=== PATIENT | female | born 1935 | race Caucasian/White ===

== ENCOUNTER 2016-12-16 15:26 | Inpatient (IN) | payer MEDICARE ==
[2016-12-16] VITALS (8 sets, daily range): BP systolic 146–210; BP diastolic 60–73
[~2016-12-16] VITALS: Ht 160 cm; Wt 122.7 kg
--- NOTE | ~2016-12-16 | PR ---
[place], [place] PROGRESS NOTE NAME: [facility]ENETTA GUILLAUME [facility] [id number] UNIT #: [id number] ROOM: 409 DOCTOR: DEIGO HASSAN MD BIRTHDATE: [birth year] DOS: 12/19/2016 SUBJECTIVE: The patient just had a stress Cardiolite done yesterday, seen by Dr. Thurston, no evidence of any ischemia. Ejection fraction is well preserved. Hemodynamically appears to be stable. OBJECTIVE: VITAL SIGNS: Blood pressure is 150/59. NECK: Supple. No JVD. LUNGS: Diminished breath sounds. HEART: Heart sounds are regular. NEUROLOGIC: Stable. LABORATORY DATA: Hemoglobin 12.2, hematocrit 36.3. Electrolytes are normal. REVIEW OF SYSTEMS: Six to eight systems reviewed and as per HPI. Ejection fraction is excellent. IMPRESSION: Hypertensive urgency, atypical chest pain, coronary artery disease, irritable bowel syndrome, chronic obstructive pulmonary disease. RECOMMENDATIONS: Continue the present management. Continue to monitor the INR. Blood pressure is much better. Her Coumadin dose has been adjusted. Potassium and magnesium has been supplemented. The patient is already on lisinopril and metoprolol and Bumex. Continue the present care. DIEGO HASSAN MD CM:PNTRANS 0716 [id number] DIEGO HASSAN MD 12/19/16 0757 interface
--- NOTE | ~2016-12-16 | CON ---
[place], [place] REPORT OF CONSULTATION NAME[id number] UNIT #: [id number] ROOM: 409 DOCTOR: FABIENNE RODRIGUEZ MD BIRTHDATE: [birth year] DOS: 12/17/2016 HISTORY OF PRESENT ILLNESS: This is an 81-year-old -[place] woman with a history of coronary artery disease. She reminds me that I did a heart cath on her in 2008 after a positive stress test and told her that she had 50-60% stenosis. She had pulmonary embolism in the remote past and has essential hypertension, morbid obesity, dyslipidemia, ____, irritable bowel syndrome. She had a cholecystectomy and cataract surgery in the remote past. She has had abdominal hernia as well. She has had exertional shortness of breath for quite a long time in terms of years and recently had got worse. She tells me that if she walks from her bedroom to her bathroom and back, which is about 15 feet, she gets so short of breath that she cannot talk, but does not have any chest pain. However, 2 weeks to about 10 days ago, she had a heavy feeling in the anterior part of the chest that lasted for about 20 minutes and was not accompanied by any palpitation or sweating or nausea. She had another episode about a week ago and none since. She became very short of breath and decided to come to the Emergency Department. She has hypertension. Dr. Chapin Darnell had reduced her lisinopril because the blood pressure was rather low recently. During this admission, her blood pressure ____rather high. She does not have any orthopnea. It is not clear if she smokes. She has not had much swelling in the past, but now legs are somewhat puffy. No palpitations. She has not had any fever, chills or shivering. HOME MEDICATIONS: Acetaminophen 1 mg q. 6h. p.r.n., bumetanide 2 mg in the morning, lisinopril 20 mg daily, isosorbide mononitrate 30 mg daily, potassium 20 mEq daily, warfarin 5 mg daily, levothyroxine 50 mcg daily. PHYSICAL EXAMINATION: GENERAL: Reveals a patient who is morbidly obese. She is alert, oriented. She is not tachypneic. No thyromegaly. She is not anemic. There is no finger clubbing. VITAL SIGNS: Pulse is regular at 64 beats per minute, blood pressure 152/53. Yesterday highest blood pressure recorded was 210/73. NECK: JVP is normal. AJR is negative. This was quite easy to assess. No carotid bruit was present. HEART: There is no cardiomegaly. Auscultation reveals S1, S2 are of normal intensity and no murmurs were present. There is no rub. EXTREMITIES: She has palpable pedal pulses and 1+ pretibial edema. RESPIRATORY: She was not tachypneic and percussion was normal. Auscultation revealed no adventitious sounds. ABDOMEN: Supple, nontender. A ventral hernia was identified. DIAGNOSTIC STUDIES: An ECG on admission demonstrated normal sinus rhythm at 57 beats per minute and mild criteria for LVH. Chest x-ray showed no pulmonary edema or any other abnormality. LABORATORY DATA: Troponin I level has been less than 0.015 x 3. Bilirubin is [place], [place] REPORT OF CONSULTATION NAME: RENETTA GUILLAUME UNIT #: [id number] ROOM: 409 DOCTOR: FABIENNE RODRIGUEZ MD BIRTHDATE: [birth year] 2, which is mildly elevated, potassium 3.5, sodium 142. BUN and creatinine are normal at 22 and 0.81 respectively. IMPRESSION: 1. This patient has marked dyspnea on exertion, reasons are multifold. 2. Morbid obesity, probably a major cause. Diastolic dysfunction of the left ventricle in the setting of hypertension is another reason to be considered as well as uncontrolled hypertension. She had pulmonary embolism in the remote past, whether that has caused pulmonary hypertension is not clear. Of course underlying coronary artery disease may be causing just dyspnea on exertion rather than chest pain, which she did have on 2 occasions. 3. There is no clinical or radiographic evidence of heart failure. RECOMMENDATIONS: Lisinopril dose was increased yesterday and that has resulted in better blood pressure control. An echocardiogram needs to be done to assess LV systolic and diastolic function of the left ventricle and possibly assess for pulmonary hypertension. I strongly recommend a Lexiscan Cardiolite study and if this shows ischemia, I would have low threshold for diagnostic heart cath because of her symptoms. History of atrial fibrillation. She is in normal sinus rhythm. INR is little bit on the low side. I thank you for this consult. FABIENNE RODRIGUEZ MD CM:CONSTR:REPORT OF CONSULTATION 1101 12/17/16 1252 interface
--- NOTE | ~2016-12-16 | PR ---
[place], [place] PROGRESS NOTE [id number] UNIT #: [id number] ROOM: 409 DOCTOR: FABIENNE RODRIGUEZ MD BIRTHDATE: [birth year] DOS: 12/18/2016 SUBJECTIVE: She feels quite well. Does not have any swelling of the legs. No breathing difficulty or palpitations. She has not walked much in the hallways. OBJECTIVE: VITAL SIGNS: Pulse is regular at 84, blood pressure 112/79. NECK: JVP is normal. LUNGS: Fairly clear. EXTREMITIES: No edema in the lower extremities. Diagnostic Studies: Lexiscan Cardiolite study was performed today and nuclear images did not demonstrate any ischemia and LV ejection fraction was 86%. ASSESSMENT AND PLAN: This patient most likely has some degree of diastolic dysfunction which is causing exertional shortness of breath along with some other factors I mentioned before. Small dose of a diuretic would be useful. FABIENNE RODRIGUEZ MD CM:PNTRANS 1751 26 FABIENNE RODRIGUEZ MD 12/18/162126 interface
--- NOTE | ~2016-12-16 | WRIGHTHP ---
[place], [place] PATIENT HISTORY AND PHYSICAL EXAM NAME: RENETTA GUILLAUME [facility] #: [id number] UNIT #: [id number] ROOM: 409 DOCTOR: JACK YEBOAH MD BIRTHDATE: [birth year] DOS: 12/17/2016 HISTORY OF PRESENT ILLNESS: The patient has been admitted to the hospital yesterday with history of shortness of breath and chest pain and the patient was feeling weak and not feeling good. She came to the Emergency Department from where she is admitted to the hospital with chest pain and congestive heart failure. The patient is feeling better now. She denies any chest pain. There is no difficulty in breathing. She is also having swelling of the legs. No nausea, no vomiting. ALLERGIES: The patient is allergic to PENICILLIN, CIPROFLOXACIN, LEVOFLOXACIN and MELOXICAM. MEDICATIONS: She is taking following medications, metoprolol 50 mg twice daily, nd Macrobid 100 mg twice daily, Coumadin 5 mg daily, lisinopril 20 mg daily, Tylenol p.r.n., isosorbide extended release 30 mg daily, levothyroxine 50 mcg daily, bumetanide 2 mg daily, potassium chloride 20 mEq daily. PAST MEDICAL HISTORY: The patient has history of ESHD, hypertension, congestive heart failure and atrial fibrillation. PAST SURGICAL HISTORY: History of cataract removal, insertion of prosthetic lens, history of cardiac catheterization, history of D and C, history of cholecystectomy and right arm fracture. The patient has history of uterine suspension also. She had cardiac catheterization done twice. SOCIAL HISTORY: The patient does not drink, does not smoke. PHYSICAL EXAMINATION: GENERAL: The patient is conscious, alert, and oriented, and she is obese. ENT: Unremarkable. NECK: Veins are not distended. Carotid pulsation is normal. Trachea is central. HEART: Regular, no murmur. LUNGS: Sensation of wheezing at the bases with no crepitation. EXTREMITIES: The patient can move all the 4 limbs without any problem and she is having 2+ edema of leg and also having incisional ventral hernia. No neurological deficit observed. LABORATORY DATA: Her CBC in emergency done is fairly good. Protime is 7.2. Comprehensive metabolic profile is showing chloride 108, bilirubin of 1.5. Other values are normal. Troponin level is normal. Chest x-ray is normal. CK-MB and troponin level is normal. Repeat comprehensive profile showed calcium 8.3, bilirubin 2, other values are normal. Repeat CK-MB and troponin levels are normal. OBJECTIVE: VITAL SIGNS: Her blood pressure 148/56, pulse 61, respirations 20, temperature 98.3. [place], [place] PATIENT HISTORY AND PHYSICAL EXAM NAME: RENETTA GUILLAUME UNIT #: [id number] ROOM: 409 DOCTOR: JACK YEBOAH MD BIRTHDATE: [birth year] DIAGNOSES: ESHD, hypertension, congestive heart failure, atrial fibrillation, massive obesity, ventral hernia, hyperlipidemia. PLAN OF TREATMENT: The patient will receive diuretic. She will be admitted to hospital with oxygen on p.r.n. basis to keep her pulse oximetry above 96% and we will continue on her home medications. JACK YEBOAH MD CM:HISPHYS:PATIENT HISTORY AND PHYSICAL EXAMINATION 4 JACK YEBOAH MD 12/17/16 0936 interface
--- NOTE | ~2016-12-16 | EKG ---
[place], [place] ELECTROCARDIOGRAM REPORT NAME: RENETTA GUILLAUME UNIT #: [id number] ROOM: 409 DOCTOR: FABIENNE RODRIGUEZ MD BIRTHDATE: [birth year] DOS: 12/16/2016 TIME: 1538 hours. Normal sinus rhythm at 57 beats per minute. Minimal criteria for LVH. No previous tracing is available for comparison. FABIENNE RODRIGUEZ MD CM:EKGRPT:ELECTROCARDIOGRAM REPORT 1739 1837 FABIENNE RODRIGUEZ MD
--- NOTE | ~2016-12-16 | EKG ---
[place], [place] ELECTROCARDIOGRAM REPORT NAME: RENETTA GUILLAUME UNIT #: [id number] ROOM: 409 DOCTOR: FABIENNE RODRIGUEZ MD BIRTHDATE: [birth year] DOS: 12/17/2016 TIME: 1105 hours. Sinus bradycardia at 55 beats per minute. Minimal criteria for LVH. An abnormal ECG. FABIENNE RODRIGUEZ MD CM:EKGRPT:ELECTROCARDIOGRAM REPORT 1740 1841 FABIENNE RODRIGUEZ MD
[~2016-12-16 15:26] MED LIST: CARDURA2 MG PO; CLINDAMYCIN HC300 MG PO; COUMADIN0.5 M1 PO; COUMADIN4 M2 PO; COUMADIN5 M2 PO; COUMADIN5 MG PO; HYDROCODONE BIT1 T11 PO; ISOSORBIDE MONO30 M1 PO; LEVOFLOXACIN500 MG PO; LISINOPRIL10 MG PO; LOPRESSOR50 MG PO; MACRODANTIN100 M1 PO; MEDROL DOSEPAK4 MG PO; METOPROLOL TART50 M1 PO; NORCO 325 MG-101 TAB PO; PRAVASTATIN SOD20 MG PO; SYNTHROID,LEVO50 MCG PO; WARFARIN SOD5 MG PO; WARFARIN SODIU7.5 MG PO; WARFARIN4 MG PO
[2016-12-16 15:45] LABS: BASO % 0.4 % (0.0-1.0); EOS # 0.1 10*3/uL (0.0-0.4); EOS % 1.5 % (1.0-4.0); HEMATOCRIT 36.7 % (37.0-47.0); HEMOGLOBIN 12.1 g/dl (12.0-16.0); LYMPH # 1.1 10*3/uL (1.3-4.4); LYMPH % 20.9 % (27.0-41.0); MEAN CELL VOLUME 93.4 fl (81.0-99.0); MEAN CORPUSCULAR HGB 30.8 pg (27.0-31.0); MEAN PLATELET VOLUME 10.5 fl (9.6-12.3); MONO # 0.6 10*3/uL (0.1-1.0); MONO % 10.5 % (3.0-9.0); NEUT # 3.6 10*3/uL (2.3-7.9); NEUT % 66.3 % (47.0-73.0); PLATELET COUNT AUTOMATED 170 10*3/uL (130-400); RED BLOOD COUNT 3.93 10*6/uL (4.10-5.10); RED CELL DISTRI WIDTH 14.4 % (0-14.5); WHITE BLOOD COUNT 5.4 10*3/uL (4.8-10.8)
[2016-12-16] MEDS ORDERED: BUMETANIDE2 MG PO (15:52)
[2016-12-16 15:53] LABS: INTERNATIONAL NORM RATIO 1.6 (2.0-3.5); PROTHROMBIN TIME 17.2 SECONDS (9.0-12.4)
[2016-12-16] MEDS ORDERED: POTASSIUM CHLO20 ME4 PO (15:54)
[2016-12-16 16:02] LABS: ALBUMIN 3.4 gm/dl (3.1-4.5); ALKALINE PHOSPHATASE 116 U/L (45-117); BILIRUBIN, TOTAL 1.5 mg/dl (0.2-1.0); BUN 22 mg/dl (7-24); CARBON DIOXIDE 25 mmol/L (21-32); CHLORIDE 108 mmol/L (98-107); EST GLOM FILT AFRICAN AMERICAN > 60 ml/min; GLUCOSE 98 mg/dL (65-99); MAGNESIUM 1.9 mg/dL (1.5-2.1); POTASSIUM 3.9 mmol/L (3.5-5.1); SGOT/AST 27 IU/L (3-35); SGPT/ALT 25 U/L (12-78); SODIUM 143 mmol/L (136-145); TOTAL PROTEIN 6.7 gm/dL (6.4-8.2)
[2016-12-16 16:24] LABS: TROPONIN I < 0.015 ng/ml (<0.045)
[2016-12-16] MEDS ORDERED: LISINOPRIL20 MG PO (17:30)
[2016-12-16] MEDS ORDERED: COUMADIN4 M2 PO (17:45)
[2016-12-16] MEDS ORDERED: TYLENOL EXTRA500 MG PO (19:08)
[2016-12-16 23:42] LABS: CPK 67 U/L (26-192)
[2016-12-17] VITALS: BP 163/64
[2016-12-17 00:23] LABS: TROPONIN I < 0.015 ng/ml (<0.045)
[2016-12-17 04:00] VITALS: BP 148/56
[2016-12-17 06:03] LABS: ALBUMIN 3.3 gm/dl (3.1-4.5); ALKALINE PHOSPHATASE 112 U/L (45-117); BUN 20 mg/dl (7-24); CARBON DIOXIDE 27 mmol/L (21-32); CHLORIDE 106 mmol/L (98-107); CPK 76 U/L (26-192); EST GLOM FILT AFRICAN AMERICAN > 60 ml/min; GLUCOSE 98 mg/dL (65-99); POTASSIUM 3.5 mmol/L (3.5-5.1); SGOT/AST 26 IU/L (3-35); SGPT/ALT 22 U/L (12-78); SODIUM 142 mmol/L (136-145); TOTAL PROTEIN 6.7 gm/dL (6.4-8.2)
[2016-12-17 06:04] LABS: CKMB 0.9 ng/ml (0.5-3.6)
[2016-12-17 06:07] LABS: TROPONIN I < 0.015 ng/ml (<0.045)
[2016-12-17 06:18] LABS: BASO % 0.4 % (0.0-1.0); EOS # 0.1 10*3/uL (0.0-0.4); EOS % 1.8 % (1.0-4.0); HEMATOCRIT 36.3 % (37.0-47.0); HEMOGLOBIN 12.2 g/dl (12.0-16.0); LYMPH # 1.4 10*3/uL (1.3-4.4); LYMPH % 26.4 % (27.0-41.0); MEAN CELL VOLUME 92.4 fl (81.0-99.0); MEAN CORPUSCULAR HGB CONC 33.6 g/dl (33.0-37.0); MEAN PLATELET VOLUME 10.9 fl (9.6-12.3); MONO # 0.7 10*3/uL (0.1-1.0); MONO % 13.9 % (3.0-9.0); NEUT # 2.9 10*3/uL (2.3-7.9); NEUT % 57.1 % (47.0-73.0); PLATELET COUNT AUTOMATED 166 10*3/uL (130-400); RED BLOOD COUNT 3.93 10*6/uL (4.10-5.10); RED CELL DISTRI WIDTH 14.5 % (0-14.5); WHITE BLOOD COUNT 5.1 10*3/uL (4.8-10.8)
[2016-12-17 08:00] VITALS: BP 152/53
[2016-12-17 11:50] LABS: CPK 90 U/L (26-192)
[2016-12-17 11:51] LABS: CKMB 1.2 ng/ml (0.5-3.6)
[2016-12-17 12:00] VITALS: BP 128/49
[2016-12-17 12:30] LABS: TROPONIN I < 0.015 ng/ml (<0.045)
[2016-12-17 16:00] VITALS: BP 141/64
[2016-12-17 20:00] VITALS: BP 129/48
[2016-12-18] VITALS: BP 132/58
[2016-12-18 08:00] VITALS: BP 153/62
[2016-12-18 12:00] VITALS: BP 155/74
[2016-12-18 15:55] LABS: INTERNATIONAL NORM RATIO 1.6 (2.0-3.5); PROTHROMBIN TIME 17.1 SECONDS (9.0-12.4)
[2016-12-18 16:03] VITALS: BP 112/79
[2016-12-18 20:00] VITALS: BP 125/70
[2016-12-18 22:09] VITALS: BP 125/70
[2016-12-19] VITALS: BP 151/59
[2016-12-19 06:33] LABS: INTERNATIONAL NORM RATIO 1.8 (2.0-3.5); PROTHROMBIN TIME 19.3 SECONDS (9.0-12.4)
[2016-12-19 08:00] VITALS: BP 131/75
[2016-12-19] MEDS ORDERED: COUMADIN6 M2 PO (11:05)
[2016-12-19] MEDS ORDERED: ASPIRIN ADULT L81 M2 PO (11:05)
[2016-12-19 12:01] VITALS: BP 161/82
== END 2016-12-19 13:50 | disposition home or self-care (01) | DRG 391 ==
LOC: ED 15:26 → EDHOLD 17:05 → 4E 17:05
PROVIDERS: Internal Medicine; Nurse Practitioner Family
DX: K21.9 Gastro-esophageal reflux disease without esophagitis (principal); I50.43 Acute on chronic combined systolic (congestive) and diastolic (congestive) heart failure; D68.9 Coagulation defect, unspecified; Z68.42 Body mass index [BMI] 45.0-49.9, adult; E66.01 Morbid (severe) obesity due to excess calories; N39.0 Urinary tract infection, site not specified; I48.91 Unspecified atrial fibrillation; I11.0 Hypertensive heart disease with heart failure; J44.9 Chronic obstructive pulmonary disease, unspecified; I16.0 Hypertensive urgency; I25.10 Atherosclerotic heart disease of native coronary artery without angina pectoris; K58.0 Irritable bowel syndrome with diarrhea; Z96.1 Presence of intraocular lens; E78.5 Hyperlipidemia, unspecified; K44.9 Diaphragmatic hernia without obstruction or gangrene; M19.90 Unspecified osteoarthritis, unspecified site; D72.810 Lymphocytopenia; E80.6 Other disorders of bilirubin metabolism; T45.515A Adverse effect of anticoagulants, initial encounter; Y92.89 Other specified places as the place of occurrence of the external cause; Z79.01 Long term (current) use of anticoagulants; Z88.0 Allergy status to penicillin; Z88.1 Allergy status to other antibiotic agents; Z82.49 Family history of ischemic heart disease and other diseases of the circulatory system; Z79.1 Long term (current) use of non-steroidal anti-inflammatories (NSAID); Z79.899 Other long term (current) drug therapy; Z90.49 Acquired absence of other specified parts of digestive tract; Z98.49 Cataract extraction status, unspecified eye; Z86.711 Personal history of pulmonary embolism

== ENCOUNTER 2017-03-09 14:01 | Inpatient (IN) | payer MEDICARE ==
[~2017-03-09] VITALS: Ht 160 cm; Wt 122.2 kg
--- NOTE | ~2017-03-09 | PR ---
[place], [place] PROGRESS NOTE [id number] UNIT #: [id number] ROOM: 425 DOCTOR: JACK YEBOAH MD BIRTHDATE: [birth year] DOS: SUBJECTIVE: The patient has been admitted to the hospital with severe epistaxis and had nasal packing then done. The patient is feeling fairly good. She is not having bleeding from her throat and not in any acute distress. Her vitamin B12 is normal. Folic acid is normal. Vitamin D is low 9.7. Comprehensive metabolic profile showed glucose 102, BUN 31, chloride is 110, calcium is 8.3. Lipid profile is normal. OBJECTIVE: VITAL SIGNS: Blood pressure is 155/64, pulse 20, temperature 97.4. CHEST: Clear. HEART: Regular. ABDOMEN: Soft. EXTREMITIES: No edema of leg. I removed the packing from the nose and watch the patient, there was no more bleeding from her nose and throat and will watch her carefully today and the patient is encouraged to be active and ambulating and walking. JACK YEBOAH MD CM:PNTRANS 0948 1338 JACK YEBOAH MD 03/11/17 1337 interface
--- NOTE | ~2017-03-09 | PR ---
[place], [place] PROGRESS NOTE [id number] UNIT #: [id number] ROOM: 425 DOCTOR: JACK YEBOAH MD BIRTHDATE: [birth year] DOS: SUBJECTIVE: The patient has been admitted to the hospital with severe epistaxis, which started yesterday and he was brought to Emergency Department where she had nasal packing done and at present the patient is not having any bleeding and she is in a little discomfort. The patient has past history of pulmonary embolism and is on Coumadin since 2008, which can be contributory factor for this. She also takes 1 baby aspirin daily. PAST MEDICAL HISTORY: The patient has history of abdominal wall hernia, arthritis, COPD, dyslipidemia, hepatitis, history of pulmonary embolism, hyperbilirubinemia, hypercoaguable state, hypertension, hypothyroidism, scoliosis, past history of cataract surgery, cardiac catheterization, history of D and C, cholecystectomy and right arm fracture. LABORATORY DATA: The patient's CBC on admission showed white count 8200, hemoglobin ____, hematocrit 38.3. Protime was 16.7, which was not very high. Comprehensive metabolic profile showed glucose 118, BUN 26, GFR 52 and chloride 108. CBC today showed hemoglobin 10.6, hematocrit 32.1. Protime today is 16.2. Hemoglobin A1c is 5. Comprehensive metabolic profile today shows glucose 102, BUN 31, chloride 110 and calcium 8.3. Lipid profile is normal. OBJECTIVE: VITAL SIGNS: Blood pressure is 133/49, pulse 62, respirations 20, temperature 97.9. CHEST: Clear. HEART: Regular. ABDOMEN: Soft. JACK YEBOAH MD CM:PNTRANS 0812 160 JACK YEBOAH MD 03/10/17 160 interface
[~2017-03-09 14:01] MED LIST changes: +ASPIRIN ADULT L81 M2 PO; +BUMETANIDE2 MG PO; +COUMADIN6 M2 PO; +LISINOPRIL20 MG PO; +POTASSIUM CHLO20 ME4 PO; +TYLENOL EXTRA500 MG PO
[2017-03-09 14:05] VITALS: BP 136/84
--- NOTE | 2017-03-09 14:13 | NUR ---
EPISTAXIS PACKING INSERTED BY DR CARDENAS.
--- NOTE | 2017-03-09 14:30 | NUR ---
RHINO ROCKET INSERTION APPEARS TO BE WORKING. PATIENT HAS BLEEDING CONTROLLED AT THIS TIME.
[2017-03-09 14:37] LABS: BASO % 0.4 % (0.0-1.0); EOS # 0.1 10*3/uL (0.0-0.4); EOS % 1.6 % (1.0-4.0); HEMATOCRIT 38.3 % (37.0-47.0); HEMOGLOBIN 12.6 g/dl (12.0-16.0); LYMPH % 24.3 % (27.0-41.0); MEAN CELL VOLUME 94.1 fl (81.0-99.0); MEAN CORPUSCULAR HGB CONC 32.9 g/dl (33.0-37.0); MEAN PLATELET VOLUME 10.3 fl (9.6-12.3); MONO # 0.6 10*3/uL (0.1-1.0); MONO % 7.6 % (3.0-9.0); NEUT # 5.4 10*3/uL (2.3-7.9); NEUT % 65.7 % (47.0-73.0); PLATELET COUNT AUTOMATED 235 10*3/uL (130-400); RED BLOOD COUNT 4.07 10*6/uL (4.10-5.10); RED CELL DISTRI WIDTH 14.8 % (0-14.5); WHITE BLOOD COUNT 8.2 10*3/uL (4.8-10.8)
[2017-03-09 14:47] LABS: ACT PARTIAL THROMBO TIME 27.4 SECONDS (20.8-31.5); INTERNATIONAL NORM RATIO 1.5 (2.0-3.5)
[2017-03-09 14:54] LABS: ALBUMIN 3.5 gm/dl (3.1-4.5); ALKALINE PHOSPHATASE 113 U/L (45-117); BUN 25 mg/dl (7-24); CHLORIDE 108 mmol/L (98-107); CREATININE 1.02 mg/dL (0.55-1.02); MAGNESIUM 2.1 mg/dL (1.5-2.1); POTASSIUM 4.2 mmol/L (3.5-5.1); SGOT/AST 29 IU/L (3-35); SGPT/ALT 29 U/L (12-78); SODIUM 141 mmol/L (136-145); TOTAL PROTEIN 6.7 gm/dL (6.4-8.2)
--- NOTE | 2017-03-09 15:06 | NUR ---
REPORT GIVEN TO SANDRA COLINDRES AT THIS TIME.
--- NOTE | 2017-03-09 15:14 | NUR ---
PATIENT RESTING WITH NO COMPLAINTS AT THIS TIME
--- NOTE | 2017-03-09 17:00 | NUR ---
PATIENT REFUSED IV ACCESS AT THIS TIME. STATES IF IT IS INDICATED AT A LATER TIME SHE WILL RE-CONSIDER INPATIENT. PO ANITBIOTIC GIVEN AT THIS TIME.
[2017-03-09 17:03] VITALS: BP 150/56
--- NOTE | 2017-03-09 17:30 | NUR ---
RECEIVED REPORT FROM SANDRA COLINDRES. CALLED DR CASTRO AND HE STATES HE IS PUTTING IN ORDERS NOW. INFORMED HIM THAT PATIENTS HOME MEDICATIONS HAVE BEEN VERIFIED WITH PHARMACIST AT [facility].
[2017-03-09] MEDS ORDERED: WARFARIN SOD5 MG PO (17:37)
--- NOTE | 2017-03-09 17:45 | NUR ---
A 81, admitted to 4E, under the services of RONALD Chen MD with a diagnosis of EPISTAXIS AND GENERAL WEAKNESS. Chief complaint is NOSE BLEED. Patient arrived via bed from ER. Monitor applied. Initial assessment completed. Vital signs taken and recorded. RONALD CHEN MD notified of admission to the unit. Orders received. See assessment for past medical history, medications and allergies. Patient and/or family oriented to unit. [facility] visitation policy reviewed. Clothing/patient valuable form completed. ASSESSMENT COMPLETE. SKIN INTACT WITH NO WOUNDS. PT RECEIVED FLU VACCINATION 03/05 AND PNEUMO VACCINATION 2013. HOME MEDICATIONS VERIFIED. DR CASTRO NOTIFIED. REGGIE MORRIS
[2017-03-09 18:11] VITALS: BP 157/64
[2017-03-09 20:00] VITALS: BP 149/55
--- NOTE | 2017-03-09 20:16 | NUR ---
PATIENT RESTING IN BED TALKING ON PHONE. NO NEEDS MADE. NO ACTIVE BLEEDING NOTED. BED IN LOWEST POSITION, CALL LIGHT IN REACH
[2017-03-10] VITALS: BP 133/45
[2017-03-10 06:57] LABS: BASO % 0.5 % (0.0-1.0); EOS # 0.1 10*3/uL (0.0-0.4); EOS % 1.4 % (1.0-4.0); HEMOGLOBIN 10.6 g/dl (12.0-16.0); LYMPH # 1.4 10*3/uL (1.3-4.4); LYMPH % 24.7 % (27.0-41.0); MEAN CELL VOLUME 94.1 fl (81.0-99.0); MEAN CORPUSCULAR HGB 31.1 pg (27.0-31.0); MONO # 0.5 10*3/uL (0.1-1.0); MONO % 8.4 % (3.0-9.0); NEUT # 3.8 10*3/uL (2.3-7.9); NEUT % 64.8 % (47.0-73.0); RED BLOOD COUNT 3.41 10*6/uL (4.10-5.10); RED CELL DISTRI WIDTH 14.8 % (0-14.5); WHITE BLOOD COUNT 5.8 10*3/uL (4.8-10.8)
[2017-03-10 06:59] LABS: HEMATOCRIT 32.1 % (37.0-47.0); PLATELET COUNT AUTOMATED 150 10*3/uL (130-400)
[2017-03-10 07:06] LABS: ACT PARTIAL THROMBO TIME 26.8 SECONDS (20.8-31.5); INTERNATIONAL NORM RATIO 1.5 (2.0-3.5)
[2017-03-10 07:40] LABS: ALKALINE PHOSPHATASE 94 U/L (45-117); BUN 31 mg/dl (7-24); CHLORIDE 110 mmol/L (98-107); CHOLESTEROL 140 mg/dL (<200); CREATININE 0.85 mg/dL (0.55-1.02); FREE T4 1.27 ng/dl (0.76-1.46); HDL CHOLESTEROL 41 mg/dl (40-60); LDL CHOLESTEROL 77 mg/dL (9-159); MAGNESIUM 1.7 mg/dL (1.5-2.1); PHOSPHOROUS 3.2 mg/dL (2.5-4.9); SGOT/AST 23 IU/L (3-35); SGPT/ALT 26 U/L (12-78); SODIUM 142 mmol/L (136-145); TOTAL PROTEIN 5.9 gm/dL (6.4-8.2); TRIGLYCERIDES 108 mg/dl (<150); VLDL CHOLESTEROL 22 mg/dL (6-40)
[2017-03-10 08:00] VITALS: BP 157/64
--- NOTE | 2017-03-10 08:15 | NUR ---
Shift chart check completed.
--- NOTE | 2017-03-10 08:16 | NUR ---
DR. YEBOAH IN TO SEE PATIENT. PT STATES BLEEDING AROUND RHINOROCKET HAS DECREASED. STILL STATES SOME BLOOD CLOTS IN BACK OF THROAT AND SOME DRAINAGE INTO BACK OF THROAT. NO COMLAINTS AT THIS TIME. WILL CONTINUE TO MONITOR
[2017-03-10 08:48] LABS: VITAMIN D, 25-HYDROXY 9.7 ng/mL (30-100)
[2017-03-10 12:00] VITALS: BP 148/51
[2017-03-10 16:00] VITALS: BP 172/63
[2017-03-10 20:00] VITALS: BP 155/70
[2017-03-11] VITALS: BP 137/51
[2017-03-11 08:27] VITALS: BP 155/64
--- NOTE | 2017-03-11 09:20 | NUR ---
DR. YEBOAH IN TO SEE PATIENT. REMOVED RHINOROCKET FROM RIGHT NARES. INFORMED PATIENT NO BLOWING NOSE. DISCUSS WITH DR. YEBOAH PATIENTS HEART RATE AND BLOOD PRESSURE MEDICATIONS, ORDERS GIVEN TO RESTART METOPROLOL AND CLARITIN. DR. YEBOAH WOULD LIKE PATIENT REMOVED FROM HEART MONITOR AND TO ENCOURAGE AMBULATION TROUGHOUT THE DAY
[2017-03-11 12:54] VITALS: BP 143/58
--- NOTE | 2017-03-11 14:19 | NUR ---
pt resting quietly in bed. no bleeding noted from nares post rhinorocket removal. continue to monitor
[2017-03-11 16:00] VITALS: BP 129/56
[2017-03-11 20:00] VITALS: BP 150/69
[2017-03-12] VITALS: BP 157/74
[2017-03-12 08:00] VITALS: BP 187/61
--- NOTE | 2017-03-12 08:40 | NUR ---
BP 187/61 BP MEDS GIVEN EARLY.
[2017-03-12 12:00] VITALS: BP 147/58
[2017-03-12] MEDS ORDERED: VITAMIN D32000 UNI1 PO (13:38)
[2017-03-12] MEDS ORDERED: LOPRESSOR25 MG PO (13:40)
--- NOTE | 2017-03-12 15:05 | NUR ---
PT DISCHARGED AT THIS TIME. IV REMOVED AND PRESSURE DRESSING APPLIED. VERBALIZED UNDERSTANDING OF DISCHARGE INSTRUCTIONS.
== END 2017-03-12 15:05 | disposition home or self-care (01) | DRG 151 ==
LOC: ED 14:01 → 4E 16:40 → EDHOLD 16:40 → 4E 17:02
PROVIDERS: Emergency Medicine; Internal Medicine Hospice and Palliative Medicine; ADMIT Internal Medicine
PROC: 2Y41X5Z Packing of Nasal Region using Packing Material (ICD-10-PCS; principal; 2017-03-09)
DX: R04.0 Epistaxis (principal); D68.32 Hemorrhagic disorder due to extrinsic circulating anticoagulants; D68.59 Other primary thrombophilia; E87.8 Other disorders of electrolyte and fluid balance, not elsewhere classified; M41.9 Scoliosis, unspecified; J44.9 Chronic obstructive pulmonary disease, unspecified; T45.515A Adverse effect of anticoagulants, initial encounter; I10 Essential (primary) hypertension; M19.90 Unspecified osteoarthritis, unspecified site; D72.810 Lymphocytopenia; R73.9 Hyperglycemia, unspecified; K58.9 Irritable bowel syndrome, unspecified; E78.5 Hyperlipidemia, unspecified; I25.10 Atherosclerotic heart disease of native coronary artery without angina pectoris; E03.9 Hypothyroidism, unspecified; Z86.711 Personal history of pulmonary embolism; Y92.89 Other specified places as the place of occurrence of the external cause; Z88.0 Allergy status to penicillin; Z88.8 Allergy status to other drugs, medicaments and biological substances; Z79.899 Other long term (current) drug therapy; Z87.440 Personal history of urinary (tract) infections; Z90.49 Acquired absence of other specified parts of digestive tract; Z98.49 Cataract extraction status, unspecified eye; Z82.3 Family history of stroke; Z82.49 Family history of ischemic heart disease and other diseases of the circulatory system; Z82.5 Family history of asthma and other chronic lower respiratory diseases; Z79.82 Long term (current) use of aspirin; Z79.01 Long term (current) use of anticoagulants

== ENCOUNTER 2017-03-16 06:11 | Emergency (ER) | payer MEDICARE ==
[~2017-03-16] VITALS: Wt 113.4 kg
--- NOTE | ~2017-03-16 | EKG ---
[place], [place] ELECTROCARDIOGRAM REPORT NAME: RENETTA GUILLAUME UNIT #: [id number] ROOM: DOCTOR: FABIENNE RODRIGUEZ MD BIRTHDATE: [birth year] DOS: 03/16/2017 TIME: 0640 hours. Normal sinus rhythm at 60 beats per minute. Left ventricular hypertrophy. An abnormal ECG. No previous tracing is available for comparison. FABINENE RODRIGUEZ MD CM:EKGRPT:ELECTROCARDIOGRAM REPORT 1136 1148 FABIENNE RODRIGUEZ MD
[~2017-03-16 06:11] MED LIST changes: +LOPRESSOR25 MG PO; +VITAMIN D32000 UNI1 PO
[2017-03-16 06:48] LABS: BASO % 0.3 % (0.0-1.0); EOS # 0.2 10*3/uL (0.0-0.4); EOS % 3.6 % (1.0-4.0); HEMATOCRIT 30.9 % (37.0-47.0); HEMOGLOBIN 9.9 g/dl (12.0-16.0); LYMPH # 1.7 10*3/uL (1.3-4.4); LYMPH % 26.2 % (27.0-41.0); MEAN CORPUSCULAR HGB 30.7 pg (27.0-31.0); MONO # 0.4 10*3/uL (0.1-1.0); MONO % 6.1 % (3.0-9.0); NEUT # 4.1 10*3/uL (2.3-7.9); NEUT % 63.5 % (47.0-73.0); PLATELET COUNT AUTOMATED 193 10*3/uL (130-400); RED BLOOD COUNT 3.22 10*6/uL (4.10-5.10); RED CELL DISTRI WIDTH 15.3 % (0-14.5); WHITE BLOOD COUNT 6.4 10*3/uL (4.8-10.8)
[2017-03-16 06:54] LABS: ACT PARTIAL THROMBO TIME 23.8 SECONDS (20.8-31.5); INTERNATIONAL NORM RATIO 1.1 (2.0-3.5)
[2017-03-16 07:01] LABS: ALBUMIN 2.7 gm/dl (3.1-4.5); ALKALINE PHOSPHATASE 90 U/L (45-117); BUN 26 mg/dl (7-24); CHLORIDE 110 mmol/L (98-107); CREATININE 0.75 mg/dL (0.55-1.02); POTASSIUM 4.1 mmol/L (3.5-5.1); SGOT/AST 30 IU/L (3-35); SGPT/ALT 38 U/L (12-78); SODIUM 144 mmol/L (136-145); TOTAL PROTEIN 5.6 gm/dL (6.4-8.2)
[2017-03-16 08:58] VITALS: BP 154/88
== END 2017-03-16 09:49 | disposition short-term general hospital (02) ==
LOC: ED 06:11
PROVIDERS: Student in an Organized Health Care Education/Training Program
DX: R04.0 Epistaxis (principal); Z88.0 Allergy status to penicillin; Z88.1 Allergy status to other antibiotic agents; Z98.890 Other specified postprocedural states

== ENCOUNTER 2017-06-05 22:46 | Inpatient (IN) | payer MEDICARE ==
[~2017-06-05] VITALS: Ht 167.6 cm; Wt 121.3 kg
--- NOTE | ~2017-06-05 | PR ---
[place], [place] PROGRESS NOTE NAME: [id number] UNIT #: [id number] ROOM: 405 DOCTOR: JACK YEBOAH MD BIRTHDATE: [birth year] DOS: SUBJECTIVE: The patient has been admitted to hospital with hypertensive crisis with feeling of dizziness and is gradually getting better. She is conscious, alert, and oriented, able to ambulate. There is no dizziness. Her CBC shows slight hypochromic anemia, otherwise normal. Basic metabolic profile showed some renal failure. BUN of 36, creatinine 1.14, GFR 46. OBJECTIVE: VITAL SIGNS: Her blood pressure is 141/57, pulse 95, respirations 20, temperature 97.8. CHEST: Clear. HEART: Regular. ABDOMEN: Soft. JACK YEBOAH MD CM:PNTRANS 1139 0020 JACK YEBOAH MD 06/11/17 0020 interface
--- NOTE | ~2017-06-05 | PR ---
[place], [place] PROGRESS NOTE [facility]: [id number] UNIT #: [id number] ROOM: 405 DOCTOR: JACK YEBOAH MD BIRTHDATE: [birth year] DOS: SUBJECTIVE: Lois Parkinson who has been admitted to the hospital with hypertensive crisis and she is feeling much better right now. She is conscious, alert, oriented and ambulating slowly. Denies any chest pain. No difficulty in breathing, no nausea, no vomiting. She was admitted with hypertensive urgencies, intractable pain, metabolic encephalopathy, urinary tract infection, eosinophilia, arthropathy of the shoulder joint, Vitamin D deficiency, acute on chronic diastolic congestive heart failure, COPD, dyslipidemia, polyarthritis, hypothyroidism, morbid obesity, history of atrial fibrillation and iron deficiency anemia. CBC today showed white count 5500, hemoglobin 11.2, hematocrit 34.2 indicating hypochromic anemia. Basic metabolic profile showed glucose 111, BUN 31, creatinine 1.09 indicating chronic renal failure. GFR is 48. OBJECTIVE: VITAL SIGNS: Her blood pressure is 133/48, pulse 68, respirations 18, temperature 97.4. CHEST: Clear. HEART: Regular. ABDOMEN: Soft. EXTREMITIES: No edema of leg. JACK YEBOAH MD CM:PNTRANS 1307 0155 JACK YEBOAH MD 06/10/17 0155 interface
[2017-06-05 23:04] VITALS: BP 190/78; BP 200/83
[2017-06-05 23:22] LABS: BASO % 0.3 % (0.0-1.0); EOS # 0.1 10*3/uL (0.0-0.4); EOS % 1.1 % (1.0-4.0); HEMATOCRIT 37.2 % (37.0-47.0); HEMOGLOBIN 12.3 g/dl (12.0-16.0); LYMPH # 1.4 10*3/uL (1.3-4.4); LYMPH % 15.3 % (27.0-41.0); MEAN CELL VOLUME 92.1 fl (81.0-99.0); MEAN CORPUSCULAR HGB 30.4 pg (27.0-31.0); MEAN CORPUSCULAR HGB CONC 33.1 g/dl (33.0-37.0); MEAN PLATELET VOLUME 11.1 fl (9.6-12.3); MONO # 0.9 10*3/uL (0.1-1.0); MONO % 9.5 % (3.0-9.0); NEUT # 6.6 10*3/uL (2.3-7.9); NEUT % 73.6 % (47.0-73.0); PLATELET COUNT AUTOMATED 153 10*3/uL (130-400); RED BLOOD COUNT 4.04 10*6/uL (4.10-5.10); RED CELL DISTRI WIDTH 14.9 % (0-14.5)
[2017-06-05 23:33] LABS: ACT PARTIAL THROMBO TIME 24.4 SECONDS (20.8-31.5); INTERNATIONAL NORM RATIO 1.1 (2.0-3.5)
[2017-06-05 23:44] LABS: ALBUMIN 3.5 gm/dl (3.1-4.5); ALKALINE PHOSPHATASE 123 U/L (45-117); BUN 18 mg/dl (7-24); CHLORIDE 107 mmol/L (98-107); CREATININE 0.77 mg/dL (0.55-1.02); POTASSIUM 4.6 mmol/L (3.5-5.1); SGOT/AST 39 IU/L (3-35); SGPT/ALT 33 U/L (12-78); SODIUM 140 mmol/L (136-145); TOTAL PROTEIN 6.5 gm/dL (6.4-8.2)
[2017-06-05 23:51] LABS: TROPONIN I < 0.015 ng/ml (<0.045)
[2017-06-05 23:53] VITALS: BP 172/65
[2017-06-06] VITALS (7 sets, daily range): BP systolic 117–175; BP diastolic 45–66
[2017-06-06] MEDS ORDERED: IRON325 M1 PO (00:09)
[2017-06-06] MEDS ORDERED: PRAVACHOL40 MG PO (00:10)
[2017-06-06 06:07] LABS: ALBUMIN 3.1 gm/dl (3.1-4.5); ALKALINE PHOSPHATASE 112 U/L (45-117); BUN 15 mg/dl (7-24); CHLORIDE 106 mmol/L (98-107); CHOLESTEROL 119 mg/dL (<200); CREATININE 0.74 mg/dL (0.55-1.02); HDL CHOLESTEROL 46 mg/dl (40-60); LDL CHOLESTEROL 58 mg/dL (9-159); PHOSPHOROUS 2.6 mg/dL (2.5-4.9); POTASSIUM 4.2 mmol/L (3.5-5.1); SGOT/AST 33 IU/L (3-35); SGPT/ALT 33 U/L (12-78); SODIUM 139 mmol/L (136-145); TOTAL PROTEIN 6.4 gm/dL (6.4-8.2); TRIGLYCERIDES 76 mg/dl (<150); VLDL CHOLESTEROL 15 mg/dL (6-40)
[2017-06-06 06:25] LABS: BASO % 0.3 % (0.0-1.0); EOS % 0.1 % (1.0-4.0); HEMATOCRIT 35.9 % (37.0-47.0); HEMOGLOBIN 11.8 g/dl (12.0-16.0); LYMPH # 0.9 10*3/uL (1.3-4.4); LYMPH % 10.9 % (27.0-41.0); MEAN CORPUSCULAR HGB 30.6 pg (27.0-31.0); MEAN CORPUSCULAR HGB CONC 32.9 g/dl (33.0-37.0); MEAN PLATELET VOLUME 11.2 fl (9.6-12.3); MONO # 0.8 10*3/uL (0.1-1.0); MONO % 9.4 % (3.0-9.0); NEUT # 6.3 10*3/uL (2.3-7.9); NEUT % 78.9 % (47.0-73.0); PLATELET COUNT AUTOMATED 134 10*3/uL (130-400); RED BLOOD COUNT 3.86 10*6/uL (4.10-5.10)
[2017-06-06 06:46] LABS: INTERNATIONAL NORM RATIO 1.1 (2.0-3.5)
[2017-06-06 08:37] LABS: VITAMIN D, 25-HYDROXY 9.3 ng/mL (30-100)
[2017-06-06 10:47] LABS: BILIRUBIN NEGATIVE (NEGATIVE); BLOOD TRACE-INTACT (NEGATIVE); CLARITY CLOUDY (CLEAR); COLOR YELLOW (YELLOW); GLUCOSE NEGATIVE (NEGATIVE); KETONE NEGATIVE (NEGATIVE); LEUKO ESTERASE NEGATIVE (NEGATIVE); NITRITE POSITIVE (NEGATIVE); PH 5.5 (5.0-9.0); SPECIFIC GRAVITY 1.025 (1.005-1.030); UROBILINOGEN 0.2 E.U./dl (0.2-1.0)
[2017-06-06 11:10] LABS: BACTERIA 3+; WBC 21-30 wbc/hpf (0-5)
[2017-06-07 08:00] VITALS: BP 141/47
[2017-06-07 12:00] VITALS: BP 121/46
[2017-06-07 16:00] VITALS: BP 121/46
[2017-06-07 20:00] VITALS: BP 107/34
[2017-06-08] VITALS: BP 126/46
[2017-06-08 06:37] LABS: BASO % 0.3 % (0.0-1.0); EOS # 0.1 10*3/uL (0.0-0.4); EOS % 0.8 % (1.0-4.0); HEMATOCRIT 33.1 % (37.0-47.0); HEMOGLOBIN 11.1 g/dl (12.0-16.0); LYMPH # 1.1 10*3/uL (1.3-4.4); MEAN CELL VOLUME 91.2 fl (81.0-99.0); MEAN CORPUSCULAR HGB 30.6 pg (27.0-31.0); MEAN CORPUSCULAR HGB CONC 33.5 g/dl (33.0-37.0); MEAN PLATELET VOLUME 11.6 fl (9.6-12.3); MONO # 0.6 10*3/uL (0.1-1.0); MONO % 10.3 % (3.0-9.0); NEUT # 4.2 10*3/uL (2.3-7.9); NEUT % 69.3 % (47.0-73.0); PLATELET COUNT AUTOMATED 116 10*3/uL (130-400); RED BLOOD COUNT 3.63 10*6/uL (4.10-5.10); RED CELL DISTRI WIDTH 14.7 % (0-14.5)
[2017-06-08 08:00] VITALS: BP 140/54
[2017-06-08] MEDS ORDERED: VITAMIN D50000 UNIT PO (10:34)
[2017-06-08] MEDS ORDERED: NAPROXEN250 MG PO (10:34)
[2017-06-08 12:00] VITALS: BP 116/36
[2017-06-08] MEDS ORDERED: DOXYCYCLINE100 M3 PO (13:39)
[2017-06-08 16:00] VITALS: BP 116/28
[2017-06-08 20:42] VITALS: BP 128/41
[2017-06-09] VITALS: BP 133/48
[2017-06-09 07:31] LABS: BASO % 0.2 % (0.0-1.0); EOS # 0.1 10*3/uL (0.0-0.4); EOS % 1.3 % (1.0-4.0); HEMATOCRIT 34.2 % (37.0-47.0); HEMOGLOBIN 11.2 g/dl (12.0-16.0); LYMPH % 18.4 % (27.0-41.0); MEAN CELL VOLUME 91.4 fl (81.0-99.0); MEAN CORPUSCULAR HGB 29.9 pg (27.0-31.0); MEAN CORPUSCULAR HGB CONC 32.7 g/dl (33.0-37.0); MEAN PLATELET VOLUME 11.8 fl (9.6-12.3); MONO # 0.5 10*3/uL (0.1-1.0); MONO % 9.5 % (3.0-9.0); NEUT # 3.9 10*3/uL (2.3-7.9); NEUT % 70.4 % (47.0-73.0); PLATELET COUNT AUTOMATED 139 10*3/uL (130-400); RED BLOOD COUNT 3.74 10*6/uL (4.10-5.10); RED CELL DISTRI WIDTH 14.7 % (0-14.5); WHITE BLOOD COUNT 5.5 10*3/uL (4.8-10.8)
[2017-06-09 07:50] LABS: POTASSIUM 3.5 mmol/L (3.5-5.1)
[2017-06-09 07:52] LABS: CREATININE 1.09 mg/dL (0.55-1.02)
[2017-06-09 08:00] VITALS: BP 158/51
[2017-06-09 12:00] VITALS: BP 136/48
[2017-06-09 16:00] VITALS: BP 149/59
[2017-06-09 20:00] VITALS: BP 151/52
[2017-06-10] VITALS: BP 137/61
[2017-06-10 07:08] LABS: BASO % 0.2 % (0.0-1.0); EOS # 0.1 10*3/uL (0.0-0.4); EOS % 3.1 % (1.0-4.0); HEMATOCRIT 34.4 % (37.0-47.0); HEMOGLOBIN 11.3 g/dl (12.0-16.0); LYMPH # 1.2 10*3/uL (1.3-4.4); LYMPH % 26.7 % (27.0-41.0); MEAN CELL VOLUME 91.5 fl (81.0-99.0); MEAN CORPUSCULAR HGB 30.1 pg (27.0-31.0); MEAN CORPUSCULAR HGB CONC 32.8 g/dl (33.0-37.0); MONO # 0.4 10*3/uL (0.1-1.0); MONO % 9.6 % (3.0-9.0); NEUT # 2.7 10*3/uL (2.3-7.9); NEUT % 60.2 % (47.0-73.0); PLATELET COUNT AUTOMATED 168 10*3/uL (130-400); RED BLOOD COUNT 3.76 10*6/uL (4.10-5.10); RED CELL DISTRI WIDTH 14.7 % (0-14.5); WHITE BLOOD COUNT 4.5 10*3/uL (4.8-10.8)
[2017-06-10 07:32] LABS: POTASSIUM 3.6 mmol/L (3.5-5.1)
[2017-06-10 07:43] LABS: CREATININE 1.14 mg/dL (0.55-1.02)
[2017-06-10 08:00] VITALS: BP 141/57
[2017-06-10 12:00] VITALS: BP 147/57
[2017-06-10 16:00] VITALS: BP 122/79
[2017-06-10 20:00] VITALS: BP 126/58
[2017-06-11] VITALS: BP 148/52
[2017-06-11 07:47] LABS: BASO % 0.6 % (0.0-1.0); EOS # 0.2 10*3/uL (0.0-0.4); EOS % 4.1 % (1.0-4.0); HEMATOCRIT 33.5 % (37.0-47.0); HEMOGLOBIN 11.1 g/dl (12.0-16.0); LYMPH # 1.4 10*3/uL (1.3-4.4); LYMPH % 28.1 % (27.0-41.0); MEAN CELL VOLUME 91.5 fl (81.0-99.0); MEAN CORPUSCULAR HGB 30.3 pg (27.0-31.0); MEAN CORPUSCULAR HGB CONC 33.1 g/dl (33.0-37.0); MEAN PLATELET VOLUME 10.8 fl (9.6-12.3); MONO # 0.5 10*3/uL (0.1-1.0); MONO % 10.6 % (3.0-9.0); NEUT # 2.9 10*3/uL (2.3-7.9); NEUT % 56.4 % (47.0-73.0); PLATELET COUNT AUTOMATED 180 10*3/uL (130-400); RED BLOOD COUNT 3.66 10*6/uL (4.10-5.10); RED CELL DISTRI WIDTH 14.6 % (0-14.5); WHITE BLOOD COUNT 5.1 10*3/uL (4.8-10.8)
[2017-06-11 08:00] VITALS: BP 150/58
[2017-06-11 08:22] LABS: CHLORIDE 104 mmol/L (98-107); POTASSIUM 3.6 mmol/L (3.5-5.1); SODIUM 143 mmol/L (136-145)
[2017-06-11 08:33] LABS: BUN 39 mg/dl (7-24); CREATININE 1.06 mg/dL (0.55-1.02)
[2017-06-11 12:00] VITALS: BP 152/82
[2017-06-11 16:00] VITALS: BP 172/66
== END 2017-06-11 18:56 | disposition other institution (70) | DRG 564 ==
LOC: ED 22:46 → EDHOLD 06-06 01:02 → 4E 06-06 01:02
PROVIDERS: Hospitalist; Internal Medicine; Student in an Organized Health Care Education/Training Program
PROC: 3E0U33Z Introduction of Anti-inflammatory into Joints, Percutaneous Approach (ICD-10-PCS; principal; 2017-06-08)
PROC: 3E0U3BZ Introduction of Anesthetic Agent into Joints, Percutaneous Approach (ICD-10-PCS; principal; 2017-06-08)
DX: M25.412 Effusion, left shoulder (principal); G93.41 Metabolic encephalopathy; I50.33 Acute on chronic diastolic (congestive) heart failure; N39.0 Urinary tract infection, site not specified; Z68.41 Body mass index [BMI] 40.0-44.9, adult; I48.0 Paroxysmal atrial fibrillation; E66.01 Morbid (severe) obesity due to excess calories; D64.9 Anemia, unspecified; J44.9 Chronic obstructive pulmonary disease, unspecified; I16.0 Hypertensive urgency; M11.80 Other specified crystal arthropathies, unspecified site; K58.9 Irritable bowel syndrome, unspecified; E61.1 Iron deficiency; E78.5 Hyperlipidemia, unspecified; E03.9 Hypothyroidism, unspecified; M19.90 Unspecified osteoarthritis, unspecified site; Z96.1 Presence of intraocular lens; E55.9 Vitamin D deficiency, unspecified; D72.828 Other elevated white blood cell count; D72.810 Lymphocytopenia; R74.0 Nonspecific elevation of levels of transaminase and lactic acid dehydrogenase [LDH]; D72.9 Disorder of white blood cells, unspecified; D72.821 Monocytosis (symptomatic); E80.6 Other disorders of bilirubin metabolism; I11.0 Hypertensive heart disease with heart failure; B96.20 Unspecified Escherichia coli [E. coli] as the cause of diseases classified elsewhere; Z90.49 Acquired absence of other specified parts of digestive tract; Z98.41 Cataract extraction status, right eye; Z82.49 Family history of ischemic heart disease and other diseases of the circulatory system; Z82.5 Family history of asthma and other chronic lower respiratory diseases; Z82.3 Family history of stroke; Z87.81 Personal history of (healed) traumatic fracture; Z88.0 Allergy status to penicillin; Z88.1 Allergy status to other antibiotic agents; Z79.82 Long term (current) use of aspirin; Z79.899 Other long term (current) drug therapy; Z86.711 Personal history of pulmonary embolism

== ENCOUNTER 2017-08-07 13:00 | Emergency (ER) | payer MEDICARE ==
[~2017-08-07] VITALS: Ht 172.7 cm; Wt 90.7 kg
[~2017-08-07 13:00] MED LIST changes: +DOXYCYCLINE100 M3 PO; +IRON325 M1 PO; +NAPROXEN250 MG PO; +PRAVACHOL40 MG PO; +VITAMIN D50000 UNIT PO
[2017-08-07 13:43] VITALS: BP 140/78
[2017-08-07 13:59] LABS: BASO % 0.4 % (0.0-1.0); EOS # 0.1 10*3/uL (0.0-0.4); EOS % 2.6 % (1.0-4.0); HEMATOCRIT 35.4 % (37.0-47.0); HEMOGLOBIN 11.7 g/dl (12.0-16.0); LYMPH # 1.1 10*3/uL (1.3-4.4); LYMPH % 22.1 % (27.0-41.0); MEAN CELL VOLUME 95.7 fl (81.0-99.0); MEAN CORPUSCULAR HGB 31.6 pg (27.0-31.0); MEAN CORPUSCULAR HGB CONC 33.1 g/dl (33.0-37.0); MEAN PLATELET VOLUME 10.3 fl (9.6-12.3); MONO # 0.5 10*3/uL (0.1-1.0); MONO % 9.3 % (3.0-9.0); NEUT # 3.3 10*3/uL (2.3-7.9); NEUT % 65.4 % (47.0-73.0); PLATELET COUNT AUTOMATED 156 10*3/uL (130-400); RED CELL DISTRI WIDTH 15.7 % (0-14.5)
[2017-08-07 14:17] LABS: BUN 24 mg/dl (7-24); CHLORIDE 110 mmol/L (98-107); CREATININE 0.72 mg/dL (0.55-1.02); POTASSIUM 4.4 mmol/L (3.5-5.1); SODIUM 144 mmol/L (136-145)
== END 2017-08-07 16:29 | disposition home or self-care (01) ==
LOC: ED 13:00
PROVIDERS: Emergency Medicine
DX: I10 Essential (primary) hypertension (principal); I48.91 Unspecified atrial fibrillation; I50.9 Heart failure, unspecified; J44.9 Chronic obstructive pulmonary disease, unspecified; E03.9 Hypothyroidism, unspecified; Z88.0 Allergy status to penicillin; Z88.1 Allergy status to other antibiotic agents; Z79.899 Other long term (current) drug therapy

== ENCOUNTER 2017-10-09 10:33 | Inpatient (IN) | payer MEDICARE ==
[~2017-10-09] VITALS: Wt 125.8 kg
--- NOTE | ~2017-10-09 | CON ---
[place], [place] REPORT OF CONSULTATION NAME[id number] UNIT #: [id number] ROOM: 405 DOCTOR: FABIENNE RODRIGUEZ MD BIRTHDATE: [birth year] DOS: 10/10/2017 HISTORY OF PRESENT ILLNESS: This is an 81-year-old -[place] woman with a history of UTIs, which has completely caused confusion. She had pulmonary embolism in the remote past, essential hypertension, morbid obesity, dyslipidemia, irritable bowel syndrome. She has coronary artery disease and had 50-60% stenosis in one of the vessels. Echo had shown normal LV systolic function. She has had a cholecystectomy and abdominal herniorrhaphy and cataract surgery. She was admitted to the hospital because of unresponsiveness. She was found by her neighbors and was brought to the Emergency Department. She was quite confused as she is now. The history from the patient is almost impossible. When I asked her, where she was, she looked around at the nurse and said [place]. She has not had any cough nor has she had any shivering. In the Emergency Department, she was found to have right-sided pneumonia and has been on antibiotics for treatment. HOME MEDICATIONS: Include aspirin 81 daily, bumetanide 2 mg daily, vitamin D 2000 units daily, doxazosin 2 mg daily, ferrous sulfate 325 mg daily, Imdur 30 q.a.m., levothyroxine 50 mcg daily, lisinopril 20 b.i.d., metoprolol tartrate 25 b.i.d. and potassium chloride 20 mEq daily, pravastatin 40 mg daily. PHYSICAL EXAMINATION: GENERAL: This is a patient who is extremely obese. She is alert, but she is in a day. She does not know where she is and is not able to answer appropriately at all. VITAL SIGNS: Temperature now is 98.9, pulse is 108 and regular, blood pressure 120/72. NECK: Normal JVP. EXTREMITIES: She has no edema in lower extremities, maybe slight pretibial pitting. RESPIRATORY: Breath sounds are diminished. She has lot of crackles in the right side with reduced breath sounds and a few crackles on the left side are appreciated. DIAGNOSTIC STUDIES: An ECG done now showed normal sinus rhythm and 106 beats per minute with LVH and with repolarization abnormalities. Previous ECGs also had shown left ventricular hypertrophy. DIAGNOSTIC DATA: Chest x-ray shows extensive right-sided pneumonia. LABORATORY DATA: Troponin I level was 0.095 on admission and 0.12 now. Hemoglobin is 12.7 g/dL. Renal function is normal. IMPRESSION: This patient with coronary artery disease, but normal LV systolic function, has minimally elevated troponin I level. [place], [place] REPORT OF CONSULTATION NAME: RENETTA GUILLAUME UNIT #: [id number] ROOM: 405 DOCTOR: MICHAEL MANZO,FABIENNE BIRTHDATE: [birth year] I think this is likely to be a type 2 myocardial infarction, namely supply demand imbalance, which may have been caused by pneumonia and hypoxia. I do not feel we need to do any further workup. Pneumonia is being treated aggressively. I thank you for this consult. FABIENNE RODRIGUEZ MD CM:CONSTR:REPORT OF CONSULTATION 0727 10/10/17 2142 interface
--- NOTE | ~2017-10-09 | EKG ---
[place], [place] ELECTROCARDIOGRAM REPORT NAME: RENETTA GUILLAUME UNIT #: [id number] ROOM: 405 DOCTOR: FABIENNE RODRIGUEZ MD BIRTHDATE: [birth year] DOS: 10/10/2017 TIME: 0716 hours FINDINGS: 1. Sinus tachycardia at 106 beats per minute. 2. Left ventricular hypertrophy. 3. There is ST elevation in V1 and V2 with T-wave inversion in V2 that raises the possibility of acute anteroseptal myocardial infarction. 4. An abnormal ECG. 5. No previous tracing is available for comparison. FABIENNE RODRIGUEZ MD CM:EKGRPT:ELECTROCARDIOGRAM REPORT 1323 1500 FABIENNE RODRIGUEZ MD
[2017-10-09 10:36] VITALS: BP 132/84
[2017-10-09 10:58] LABS: BASO % 0.1 % (0.0-1.0); HEMOGLOBIN 14.7 g/dl (12.0-16.0); LYMPH # 0.9 10*3/uL (1.3-4.4); MEAN CELL VOLUME 94.6 fl (81.0-99.0); MEAN CORPUSCULAR HGB 31.6 pg (27.0-31.0); MEAN CORPUSCULAR HGB CONC 33.4 g/dl (33.0-37.0); MEAN PLATELET VOLUME 10.2 fl (9.6-12.3); MONO # 0.9 10*3/uL (0.1-1.0); MONO % 5.2 % (3.0-9.0); NEUT # 15.5 10*3/uL (2.3-7.9); NEUT % 89.2 % (47.0-73.0); PLATELET COUNT AUTOMATED 196 10*3/uL (130-400); RED BLOOD COUNT 4.65 10*6/uL (4.10-5.10); RED CELL DISTRI WIDTH 14.6 % (0-14.5); WHITE BLOOD COUNT 17.4 10*3/uL (4.8-10.8)
[2017-10-09 11:12] LABS: ALBUMIN 3.5 gm/dl (3.1-4.5); CREATININE 1.09 mg/dL (0.55-1.02); POTASSIUM 4.3 mmol/L (3.5-5.1); TOTAL PROTEIN 7.2 gm/dL (6.4-8.2)
[2017-10-09 12:06] VITALS: BP 124/70
[2017-10-09 12:17] LABS: BILIRUBIN NEGATIVE (NEGATIVE); BLOOD 3+ (NEGATIVE); CLARITY CLOUDY (CLEAR); COLOR RED (YELLOW); GLUCOSE NEGATIVE (NEGATIVE); KETONE NEGATIVE (NEGATIVE); NITRITE NEGATIVE (NEGATIVE); PH 6.5 (5.0-9.0); SPECIFIC GRAVITY 1.025 (1.005-1.030)
[2017-10-09 12:38] LABS: RBC TNTC rbc/hpf (0-2)
[2017-10-09 12:39] LABS: LEUKO ESTERASE 1+ (NEGATIVE)
[2017-10-09 13:07] VITALS: BP 164/73
[2017-10-09 13:45] VITALS: BP 119/43
[2017-10-09] MEDS ORDERED: Lopressor25 MG PO (14:52)
[2017-10-09] MEDS ORDERED: PRAVACHOL40 MG PO (14:53)
[2017-10-09] MEDS ORDERED: DOXAZOSIN MESYLA2 MG PO (14:59)
[2017-10-09] MEDS ORDERED: VITAMIN D-32000 UNIT PO (15:01)
[2017-10-09 15:33] LABS: CKMB 20.4 ng/ml (0.5-3.6)
[2017-10-09 16:00] VITALS: BP 109/69
[2017-10-09 20:00] VITALS: BP 162/84
[2017-10-09 20:00] LABS: ABG BASE EXCESS -3.2 mmol/L (-2.0-2.0); ABG HCO3 21.3 mmol/l (22-26); ABG O2 SATURATION 91.9 % (95-97); ARTERIAL BLOOD GAS PH 7.366 (7.35-7.45); ARTERIAL BLOOD GAS PO2 61.1 mmHg (80-90)
[2017-10-10] VITALS: BP 157/66
[2017-10-10 04:00] VITALS: BP 120/72
[2017-10-10 06:27] LABS: BUN 32 mg/dl (7-24); CHLORIDE 108 mmol/L (98-107); CHOLESTEROL 150 mg/dL (<200); CREATININE 0.95 mg/dL (0.55-1.02); HDL CHOLESTEROL 45 mg/dl (40-60); LDL CHOLESTEROL 83 mg/dL (9-159); PHOSPHOROUS 1.9 mg/dL (2.5-4.9); POTASSIUM 3.9 mmol/L (3.5-5.1); SODIUM 143 mmol/L (136-145); TRIGLYCERIDES 109 mg/dl (<150); VLDL CHOLESTEROL 22 mg/dL (6-40)
[2017-10-10 06:30] LABS: BASO % 0.1 % (0.0-1.0); HEMATOCRIT 39.8 % (37.0-47.0); HEMOGLOBIN 12.7 g/dl (12.0-16.0); LYMPH # 0.9 10*3/uL (1.3-4.4); LYMPH % 6.3 % (27.0-41.0); MEAN CELL VOLUME 94.3 fl (81.0-99.0); MEAN CORPUSCULAR HGB 30.1 pg (27.0-31.0); MEAN CORPUSCULAR HGB CONC 31.9 g/dl (33.0-37.0); MEAN PLATELET VOLUME 10.6 fl (9.6-12.3); MONO # 0.9 10*3/uL (0.1-1.0); MONO % 6.2 % (3.0-9.0); PLATELET COUNT AUTOMATED 179 10*3/uL (130-400); RED BLOOD COUNT 4.22 10*6/uL (4.10-5.10); RED CELL DISTRI WIDTH 14.6 % (0-14.5); WHITE BLOOD COUNT 14.9 10*3/uL (4.8-10.8)
[2017-10-10 07:34] LABS: VITAMIN D, 25-HYDROXY 19.8 ng/mL (30-100)
[2017-10-10 08:28] VITALS: BP 138/64
[2017-10-10 12:00] VITALS: BP 111/56
[2017-10-10 16:00] VITALS: BP 100/42
== END 2017-10-10 19:00 | disposition short-term general hospital (02) | DRG 871 ==
LOC: ED 10:33 → 4E 13:10 → EDHOLD 13:10 → 4E 13:38
PROVIDERS: Emergency Medicine; Internal Medicine; Student in an Organized Health Care Education/Training Program
DX: A41.9 Sepsis, unspecified organism (principal); J18.1 Lobar pneumonia, unspecified organism; I63.9 Cerebral infarction, unspecified; G93.41 Metabolic encephalopathy; I11.0 Hypertensive heart disease with heart failure; E87.2 Acidosis; I48.91 Unspecified atrial fibrillation; E66.01 Morbid (severe) obesity due to excess calories; M41.9 Scoliosis, unspecified; I50.32 Chronic diastolic (congestive) heart failure; N39.0 Urinary tract infection, site not specified; R47.01 Aphasia; J44.9 Chronic obstructive pulmonary disease, unspecified; R31.0 Gross hematuria; Z88.0 Allergy status to penicillin; M19.90 Unspecified osteoarthritis, unspecified site; E03.9 Hypothyroidism, unspecified; K58.9 Irritable bowel syndrome, unspecified; R65.20 Severe sepsis without septic shock; E80.6 Other disorders of bilirubin metabolism; R74.0 Nonspecific elevation of levels of transaminase and lactic acid dehydrogenase [LDH]; E78.5 Hyperlipidemia, unspecified; E55.9 Vitamin D deficiency, unspecified; I25.10 Atherosclerotic heart disease of native coronary artery without angina pectoris; Z88.1 Allergy status to other antibiotic agents; Z86.711 Personal history of pulmonary embolism; Z90.49 Acquired absence of other specified parts of digestive tract; Z87.81 Personal history of (healed) traumatic fracture; Z82.49 Family history of ischemic heart disease and other diseases of the circulatory system; Z82.5 Family history of asthma and other chronic lower respiratory diseases; Z79.82 Long term (current) use of aspirin

== ENCOUNTER 2017-12-06 00:18 | Inpatient (IN) | payer MEDICARE, BC ==
[2017-12-06] VITALS (8 sets, daily range): BP systolic 129–162; BP diastolic 46–94
[~2017-12-06] VITALS: Ht 165.1 cm; Wt 124.5 kg
--- NOTE | ~2017-12-06 | WRIGHTHP ---
[place], [place] PATIENT HISTORY AND PHYSICAL EXAM NAME: RENETTA GUILLAUME [facility] #: [id number] UNIT #: [id number] ROOM: 523 DOCTOR: HAKEEM RYAN MD BIRTHDATE: [birth year] DOS: 12/06/2017 HISTORY OF PRESENT ILLNESS: This is an 82-year-old patient, was found fairly unresponsive in the snf. She was unable to communicate and was sent out to the Emergency Room where she was noted to have a seizure while in the ER, was admitted with new onset seizure disorder. The patient has history of a CVA. She has not had any recent problems, I had seen her 2 days prior to this admission. The only complaint at that time was that she was continuing to have right knee pain. PAST MEDICAL HISTORY: Significant for 1. History of a CVA. 2. Adult failure to thrive. 3. Benign hypertension. 4. Degenerative joint disease of the right knee. 5. Morbid obesity. 6. Mixed hyperlipidemia. 7. COPD. 8. History of CHF. MEDICATIONS: She is on are Bumex 2 mg daily, aspirin 81 daily, vitamin D 2000 units daily, doxazosin 2 mg daily, iron 325 b.i.d., isosorbide 30 daily, levothyroxine 50 mcg daily, lisinopril 20 b.i.d., metoprolol 25 b.i.d., potassium 20 daily, and Pravachol 40 daily. SOCIAL HISTORY: Nonsmoker. 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 Temperature is 98.1 with a T-max of 101.7, pulse of 80, respirations 20, blood pressure 144/94. LUNGS: Diminished breath sounds, clear. HEART: Regular. ABDOMEN: Obese, soft, nontender. EXTREMITIES: Without any edema, able to move all 4 extremities. ASSESSMENT AND PLAN: 1. Seizure disorder with postictal state. The patient has known history of cerebrovascular accident. CT of the head was negative. We will arrange for an MRI of the brain. The patient has been placed on Keppra. 2. Metabolic encephalopathy from seizure disorder. The patient also may have an underlying urinary tract infection. Urine culture and blood cultures have been sent. IV fluids, IV antibiotics started. The low grade fever could be from an underlying infection versus the seizure itself. 3. Benign hypertension. Currently, she is obtunded and lethargic. We will hold off on p.o. medications and p.o. feeds. [place], [place] PATIENT HISTORY AND PHYSICAL EXAM NAME: RENETTA GUILLAUME UNIT #: [id number] ROOM: 523 DOCTOR: HAKEEM RYAN MD BIRTHDATE: [birth year] HAKEEM RYAN MD CM:HISPHYS:PATIENT HISTORY AND PHYSICAL EXAMINATION [id number] HAKEEM RYAN MD 12/06/17 0814 interface
--- NOTE | ~2017-12-06 | PR ---
[place], [place] PROGRESS NOTE [id number] UNIT #: [id number] ROOM: 523 DOCTOR: HAKEEM RYAN MD BIRTHDATE: [birth year] DOS: 12/08/2017 SUBJECTIVE: The patient is much more awake and alert and oriented, did recognize me and did answer questions appropriately, even though with some hesitation and dysphasia. PHYSICAL EXAMINATION: VITAL SIGNS: Blood pressure is 140/50, pulse of 80, respirations 18, temperature 98.4. LUNGS: Clear. HEART: Regular. ABDOMEN: Soft. EXTREMITIES: Without any edema. Right facial palsy is more evident today. ASSESSMENT AND PLAN: 1. The patient with encephalopathy, possibly from underlying cerebrovascular accident. CT and MRI has come back negative, but the patient does have right-sided facial palsy and dysphasia. 2. Seizure disorder, which is new onset. The patient is placed on Keppra. 3. Benign hypertension, controlled. We will restart a diet on the patient. We will decrease IV fluids and the plan is to discharge her back to the alf. HAKEEM RYAN MD CM:PNTRANS [id number] HAKEEM RYAN MD 12/08/172135 interface
--- NOTE | ~2017-12-06 | EKG ---
[place], [place] ELECTROCARDIOGRAM REPORT NAME: RENETTA GUILLAUME UNIT #: [id number] ROOM: 523 DOCTOR: EPIPHANY DRAFT REPORT BIRTHDATE: [birth year] [facility] Test Date: 2017-12-06 Test Time: 00:44:19 Pat Name: RENETTA GUILLAUME Department: ER Room: 7 Gender: F Soldering Machine Operator: : [id number] Requested By: ABIMAEL VELASQUEZ Order Number: [id number] Reading MD: Faviola Conley MD Measurements Intervals [place] Rate: 91 P: 43 MA: 145 QRS: 15 QRSD: 84 T: 79 QT: 372 QTc: 458 Interpretive Statements Sinus rhythm Probable left atrial enlargement Electronically Signed On 12-07-2017 11:09:16 PDT by Faviola Conley MD CM:EKGRPT:ELECTROCARDIOGRAM REPORT [id number] ABIMAEL VELASQUEZ MD EPIPHANY DRAFT REPORT ABIMAEL VELASQUEZ MD
--- NOTE | ~2017-12-06 | PR ---
[place], [place] PROGRESS NOTE NAME[id number] UN[facility] #: [id number] ROOM: 523 DOCTOR: HAKEEM RYAN MD BIRTHDATE: [birth year] DOS: 12/07/2017 SUBJECTIVE: The patient did wake up integration solution architect, looked at me, but unable to communicate well. Her speech is garbled and she repeats the same words. She was unable to tell me her name and her daughter's name. OBJECTIVE: VITAL SIGNS: Graphic trend shows pressure of 156/71, pulse of 82, respirations 20, temperature 98.7 with a T-max 101.7. LUNGS: Clear. HEART: Regular. ABDOMEN: Obese. EXTREMITIES: Chronic lymphedema. DIAGNOSTIC DATA: MRI of the head shows old posterior occipital CVA. No acute changes were seen. Chronic small vessel disease was noted. A CT of the head was unremarkable. I do not have any labs today. ASSESSMENT AND PLAN: 1. Seizure disorder. The patient has been started on Keppra. 2. Benign hypertension, controlled on clonidine patch. 3. History of a cerebrovascular accident with adult failure to thrive. Discussed with the patient's family in detail. It is possible that her metabolic encephalopathy could be from postictal state versus a new CVA, which has not been picked up on the current imaging. Overall, prognosis remains poor and guarded. The plan is to discharge her back to the custodial soon. HAKEEM RYAN MD CM:PNTRANS [phone] HAKEEM RYAN MD 12/07/17 2003 interface
--- NOTE | ~2017-12-06 | PR ---
[place], [place] PROGRESS NOTE NAME: RENETTA GUILLAUME UNIT #: [id number] ROOM: 523 DOCTOR: HAKEEM RYAN MD BIRTHDATE: [birth year] DOS: SUBJECTIVE: The patient is awake and alert and does not have any new complaints and tiredness. OBJECTIVE: VITAL SIGNS: Blood pressure is 133/44, pulse of 74, respirations 18, temperature 99.6. LUNGS: Clear. HEART: Regular. ABDOMEN: Obese. EXTREMITIES: Decreased edema this morning. LABORATORY DATA: Urine culture shows Enterococcus raffinosus, which is only 10,000 colonies, possibly from the indwelling Engel, which was removed yesterday. Comprehensive shows glucose of 119, BUN 12, creatinine 0.62, sodium 141, potassium 3.4, chloride 106, bicarbonate 27. CBC is not available. Blood culture shows no bacterial growth. ASSESSMENT AND PLAN: 1. Seizure disorder, on Keppra, which is new onset with postictal state. 2. Encephalopathy from seizure disorder as well as a possibility of cerebrovascular accident. She does have evidence of right-sided facial palsy. 3. Benign hypertension, controlled. Some of her meds have been restarted. 4. Urine culture with 10,000 colonies of Enterococcus. We will add Macrobid. 5. Adult failure to thrive, to go back to [facility] today. HAKEEM RYAN MD CM:PNTRANS [id number] HAKEEM RYAN MD 12/10/17 2344 interface
--- NOTE | ~2017-12-06 | PR ---
[place], [place] PROGRESS NOTE NAME: RENETTA GUILLAUME [facility] #: [id number] UNIT #: [id number] ROOM: 523 DOCTOR: HAKEEM RYAN MD BIRTHDATE: [birth year] DOS: SUBJECTIVE: The patient is about the same, does not have any new complaints. She underwent the venous Doppler yesterday morning and it showed DVT of the right posterior tibial vein. A V/Q scan was done, which showed a normal perfusion scan. Chest x-ray was negative. White cell count was normal. So, discharge was held because they wanted the patient placed on anticoagulants. This morning, the patient is about the same, does not have any new complaints. OBJECTIVE: VITAL SIGNS: Blood pressure is 133/49, pulse of 50s, respirations 18, and temperature 98.6. LUNGS: Clear. HEART: Regular. ABDOMEN: Obese, soft. EXTREMITIES: Decreased edema on the right lower leg. ASSESSMENT AND PLAN: 1. Deep venous thrombosis of the right posterior tibial vein, on anticoagulants. This is most likely with the patient in a bedridden state. 2. Seizure disorder. 3. Metabolic encephalopathy. 4. History of cerebrovascular accident with small vessel disease and possible transient ischemic attack. 5. Urinary tract infection with Enterococcus raffinosus only 10,000 colonies. The patient is stable and will be discharged back to the [facility]. Overall, prognosis remains poor and guarded. Code status is DNR comfort care. Diet is liberal. HAKEEM RYAN MD CM:PNTRANS [phone] HAKEEM RYAN MD 12/11/17 2017 interface
--- NOTE | ~2017-12-06 | DS ---
[place], [place] DISCHARGE SUMMARY NAME: RENETTA GUILLAUME [facility] #: [id number] UNIT #: [id number] ROOM: 523 DOCTOR: HAKEEM RYAN MD BIRTHDATE: [birth year] DOS: 12/10/2017 DATE OF ADMISSION: 12/06/2017 DATE OF DISCHARGE: 12/10/2017 DIAGNOSES: 1. Metabolic encephalopathy. 2. Seizure disorder. 3. History of a cerebrovascular accident. No new changes noticed on MRI or CT scan of the head. 4. Small vessel disease of the brain with possible transient ischemic attack. 5. Urinary tract infection with Enterococcus raffinosus only 10,000 colonies. 6. Benign hypertension. 7. Adult failure to thrive. 8. Mixed hyperlipidemia. 9. Degenerative joint disease of right knee. 10. Chronic obstructive pulmonary disease. 11. History of congestive heart failure. 12. Hypokalemia. 13. Hypothyroidism. DISCHARGE MEDICATIONS: Will be, nitrofurantoin 100 mg twice daily for 5 days, isosorbide 30 daily, levothyroxine 50 mcg daily, Bumex 2 mg daily, potassium 20 daily, aspirin 81 mg daily, iron 325 b.i.d., Lopressor 25 b.i.d., Pravachol 40 daily, vitamin D 2000 units daily, lisinopril 20 daily. 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 DIET: Low sodium. HOSPITAL COURSE: This patient is 82 years old, known to me from [facility], was brought in being unresponsive at the intermediate. The patient was found to have active seizures in the ER, was given IV Dilantin and was admitted. After admission, the patient had an MRI of the brain which showed small vessel disease and old stroke. No acute CVA was seen but the patient's examination showed evidence of right-sided facial palsy and she had evidence of metabolic encephalopathy. This could be from the postictal state versus a TIA. Condition was discussed with the patient's daughter. She is comfort care only. The patient was continued on home medications. Some of the meds have been restarted as the patient became more awake and alert and able to take p.o. meds. IV fluids were ordered. IV fluids also given. The patient did have a Engel catheter and has grown 10,000 colonies of Enterococcus raffinosus, this could be from the Engel insertion. Engel has been removed. A low dose of Macrobid will be given for 5 days. The patient is overall stable and improved. She is much more awake and alert and communicates well and able to answer questions appropriately. The plan is therefore to discharge her back to the intermediate. I have ordered a venous Doppler of the right leg. I do not have the results of that yet and an echocardiogram is also pending. [place], [place] DISCHARGE SUMMARY NAME: RENETTA GUILLAUME UNIT #: [id number] ROOM: 523 DOCTOR: HAKEEM RYAN MD BIRTHDATE: [birth year] HAKEEM RYAN MD CM:DISCHARG [id number] HAKEEM RYAN MD 12/10/17 0753 interface
--- NOTE | ~2017-12-06 | PR ---
[place], [place] PROGRESS NOTE NAME: RENETTA GUILLAUME UNIT #: [id number] ROOM: 523 DOCTOR: HAKEEM RYAN MD BIRTHDATE: [birth year] DOS: SUBJECTIVE: The patient is not having any new complaints. She is more awake and alert and is fairly appropriate, does have periods of confusion. OBJECTIVE: VITAL SIGNS: Blood pressure is 136/44, pulse of 74, respirations 18, temperature 98.1, T-max 100.4. LUNGS: Clear. HEART: Regular. ABDOMEN: Obese, soft, nontender. EXTREMITIES: Without any edema. Right leg is more swollen than the left. LABORATORY DATA: Blood culture shows no bacterial growth. Urine culture shows no bacterial growth. MRSA of the nares was negative. ASSESSMENT AND PLAN: 1. Seizure disorder with new onset seizures, placed on Keppra. 2. Most likely a reason of CVA with right-sided facial palsy, most likely responsible for her encephalopathy. The patient is stable and improving. We are waiting for case management to come. Unfortunately the weekend, I am unable to send her back to the long term because I not sure about her bed status at the long term, so avoid for case management on Sunday morning, I will decide and discharge. 3. Low-grade fever. We will discontinue Engel catheter and increase diet. HAKEEM RYAN MD CM:PNTRANS [id number] HAKEEM RYAN MD 12/09/17 7501 interface
[~2017-12-06 00:18] MED LIST changes: +DOXAZOSIN MESYLA2 MG PO; +Lopressor25 MG PO; +VITAMIN D-32000 UNIT PO
[2017-12-06 00:56] LABS: BASO % 0.4 % (0.0-1.0); EOS % 0.9 % (1.0-4.0); HEMATOCRIT 33.1 % (37.0-47.0); HEMOGLOBIN 10.3 g/dl (12.0-16.0); LYMPH # 0.9 10*3/uL (1.3-4.4); MEAN CELL VOLUME 95.7 fl (81.0-99.0); MEAN CORPUSCULAR HGB 29.8 pg (27.0-31.0); MEAN CORPUSCULAR HGB CONC 31.1 g/dl (33.0-37.0); MEAN PLATELET VOLUME 9.6 fl (9.6-12.3); MONO # 0.3 10*3/uL (0.1-1.0); MONO % 7.4 % (3.0-9.0); NEUT # 3.1 10*3/uL (2.3-7.9); NEUT % 70.1 % (47.0-73.0); PLATELET COUNT AUTOMATED 163 10*3/uL (130-400); RED BLOOD COUNT 3.46 10*6/uL (4.10-5.10); RED CELL DISTRI WIDTH 14.5 % (0-14.5); WHITE BLOOD COUNT 4.5 10*3/uL (4.8-10.8)
[2017-12-06 01:05] LABS: INTERNATIONAL NORM RATIO 1.1 (2.0-3.5)
[2017-12-06 01:11] LABS: BILIRUBIN NEGATIVE (NEGATIVE); BLOOD NEGATIVE (NEGATIVE); CLARITY CLEAR (CLEAR); COLOR YELLOW (YELLOW); GLUCOSE NEGATIVE (NEGATIVE); KETONE NEGATIVE (NEGATIVE); LEUKO ESTERASE NEGATIVE (NEGATIVE); NITRITE NEGATIVE (NEGATIVE); UROBILINOGEN 0.2 E.U./dl (0.2-1.0)
[2017-12-06 01:12] LABS: ALBUMIN 3.3 gm/dl (3.1-4.5); ALKALINE PHOSPHATASE 130 U/L (45-117); BUN 12 mg/dl (7-24); CHLORIDE 105 mmol/L (98-107); CREATININE 0.87 mg/dL (0.55-1.02); LIPASE 212 U/L (73-393); SGOT/AST 31 IU/L (3-35); SGPT/ALT 18 U/L (12-78); SODIUM 139 mmol/L (136-145); TOTAL PROTEIN 6.6 gm/dL (6.4-8.2)
[2017-12-06 01:13] LABS: TROPONIN I < 0.015 ng/ml (<0.045)
[2017-12-07] VITALS: BP 156/71
[2017-12-07 08:00] VITALS: BP 157/52
[2017-12-07 12:00] VITALS: BP 124/34
[2017-12-07 16:00] VITALS: BP 116/50
[2017-12-07 20:00] VITALS: BP 135/52
[2017-12-08] VITALS: BP 140/43
[2017-12-08 08:00] VITALS: BP 186/63
[2017-12-08 12:00] VITALS: BP 178/62
[2017-12-08 16:00] VITALS: BP 127/98
[2017-12-08 20:00] VITALS: BP 130/70
[2017-12-09] VITALS: BP 136/44
[2017-12-09 08:00] VITALS: BP 140/44
[2017-12-09 12:00] VITALS: BP 151/46
[2017-12-09 16:00] VITALS: BP 122/56
[2017-12-09 20:00] VITALS: BP 133/40
[2017-12-10] VITALS: BP 133/44
[2017-12-10 06:37] LABS: ALBUMIN 2.3 gm/dl (3.1-4.5); ALKALINE PHOSPHATASE 98 U/L (45-117); BUN 12 mg/dl (7-24); CHLORIDE 106 mmol/L (98-107); CREATININE 0.62 mg/dL (0.55-1.02); POTASSIUM 3.4 mmol/L (3.5-5.1); SGOT/AST 20 IU/L (3-35); SGPT/ALT 14 U/L (12-78); SODIUM 141 mmol/L (136-145); TOTAL PROTEIN 5.6 gm/dL (6.4-8.2)
[2017-12-10] MEDS ORDERED: LISINOPRIL20 MG PO (07:15)
[2017-12-10] MEDS ORDERED: MACROBID100 M1 PO (07:24)
[2017-12-10 08:00] VITALS: BP 145/42
[2017-12-10 08:34] LABS: BASO % 0.2 % (0.0-1.0); EOS % 0.2 % (1.0-4.0); HEMATOCRIT 33.9 % (37.0-47.0); HEMOGLOBIN 10.8 g/dl (12.0-16.0); LYMPH # 1.1 10*3/uL (1.3-4.4); LYMPH % 13.4 % (27.0-41.0); MEAN CELL VOLUME 93.4 fl (81.0-99.0); MEAN CORPUSCULAR HGB 29.8 pg (27.0-31.0); MEAN CORPUSCULAR HGB CONC 31.9 g/dl (33.0-37.0); MEAN PLATELET VOLUME 10.7 fl (9.6-12.3); MONO # 0.9 10*3/uL (0.1-1.0); MONO % 10.8 % (3.0-9.0); NEUT # 6.3 10*3/uL (2.3-7.9); PLATELET COUNT AUTOMATED 151 10*3/uL (130-400); RED BLOOD COUNT 3.63 10*6/uL (4.10-5.10); RED CELL DISTRI WIDTH 14.1 % (0-14.5); WHITE BLOOD COUNT 8.4 10*3/uL (4.8-10.8)
[2017-12-10 12:00] VITALS: BP 150/50
[2017-12-10 16:00] VITALS: BP 127/56
[2017-12-10 20:00] VITALS: BP 108/59
[2017-12-11] VITALS: BP 133/49
[2017-12-11] MEDS ORDERED: XARE15TA PO (07:27)
[2017-12-11 08:00] VITALS: BP 129/46
[2017-12-11 12:00] VITALS: BP 117/42
[2017-12-26] MEDS ORDERED: XARE20MG PO (12:04)
[2017-12-26] MEDS ORDERED: NATURE'S BLEND F1 MG PO (12:05)
[2017-12-26] MEDS ORDERED: VOLTAREN100 GM T (12:15)
[2017-12-26] MEDS ORDERED: PAIN RELIEVER650 MG PO (12:18)
[2017-12-26] MEDS ORDERED: KEPPRA500 MG PO (12:48)
[2017-12-30] MEDS ORDERED: CIPROFLOXACIN500 M4 PO (17:50)
== END 2017-12-11 16:40 | disposition other institution (70) | DRG 100 ==
LOC: ED 00:18 → EDHOLD 03:36 → 5E 03:36
PROVIDERS: Emergency Medicine Emergency Medical Services; Internal Medicine
DX: G40.909 Epilepsy, unspecified, not intractable, without status epilepticus (principal); G93.41 Metabolic encephalopathy; E66.01 Morbid (severe) obesity due to excess calories; E83.42 Hypomagnesemia; G45.9 Transient cerebral ischemic attack, unspecified; I11.0 Hypertensive heart disease with heart failure; M41.9 Scoliosis, unspecified; I48.91 Unspecified atrial fibrillation; G93.89 Other specified disorders of brain; G51.0 Bell's palsy; N39.0 Urinary tract infection, site not specified; I82.441 Acute embolism and thrombosis of right tibial vein; Z68.42 Body mass index [BMI] 45.0-49.9, adult; M19.071 Primary osteoarthritis, right ankle and foot; Z66 Do not resuscitate; Z51.5 Encounter for palliative care; B95.2 Enterococcus as the cause of diseases classified elsewhere; R62.7 Adult failure to thrive; E78.2 Mixed hyperlipidemia; R47.02 Dysphasia; J44.9 Chronic obstructive pulmonary disease, unspecified; E87.6 Hypokalemia; E03.9 Hypothyroidism, unspecified; Z96.1 Presence of intraocular lens; K58.9 Irritable bowel syndrome, unspecified; Z79.82 Long term (current) use of aspirin; Z79.899 Other long term (current) drug therapy; Z88.0 Allergy status to penicillin; Z88.1 Allergy status to other antibiotic agents; Z86.73 Personal history of transient ischemic attack (TIA), and cerebral infarction without residual deficits; Z87.01 Personal history of pneumonia (recurrent); Z86.711 Personal history of pulmonary embolism; I25.2 Old myocardial infarction; Z87.440 Personal history of urinary (tract) infections; Z98.41 Cataract extraction status, right eye; Z90.49 Acquired absence of other specified parts of digestive tract; Z87.81 Personal history of (healed) traumatic fracture; Z82.49 Family history of ischemic heart disease and other diseases of the circulatory system; Z82.5 Family history of asthma and other chronic lower respiratory diseases; Z82.3 Family history of stroke

== ENCOUNTER 2018-07-04 23:56 | Emergency (ER) | payer MEDICARE, BC ==
[~2018-07-04] VITALS: Ht 167.6 cm; Wt 99.8 kg
[~2018-07-04 23:56] MED LIST changes: +ATORVASTATIN CA80 M1 PO; +BUMETANIDE1 MG PO; +CIPROFLOXACIN500 M4 PO; +DULOXETINE HCL30 MG PO; +FUROSEMIDE40 MG PO; +KEPPRA500 MG PO; +MACROBID100 M1 PO; +MEGACE 40400 MG/10 PO; +NATURE'S BLEND F1 MG PO; +PAIN RELIEVER650 MG PO; +REMERON15 M2 PO; +SEPTDS PO; -SYNTHROID,LEVO50 MCG PO; +Synthroid,Levo75 MCG PO; +VITAMIN D31000 UNI1 PO; +VOLTAREN100 GM T; +XARE15TA PO; +XARE20MG PO
[2018-07-05 00:49] LABS: BASO % 0.3 % (0.0-1.0); EOS # 0.1 10*3/uL (0.0-0.4); EOS % 1.3 % (1.0-4.0); HEMATOCRIT 35.3 % (37.0-47.0); HEMOGLOBIN 11.6 g/dl (12.0-16.0); LYMPH # 2.2 10*3/uL (1.3-4.4); LYMPH % 19.8 % (27.0-41.0); MEAN CELL VOLUME 91.7 fl (81.0-99.0); MEAN CORPUSCULAR HGB 30.1 pg (27.0-31.0); MEAN CORPUSCULAR HGB CONC 32.9 g/dl (33.0-37.0); MEAN PLATELET VOLUME 10.4 fl (9.6-12.3); MONO # 0.9 10*3/uL (0.1-1.0); MONO % 8.2 % (3.0-9.0); NEUT # 7.7 10*3/uL (2.3-7.9); PLATELET COUNT AUTOMATED 318 10*3/uL (130-400); RED BLOOD COUNT 3.85 10*6/uL (4.10-5.10); RED CELL DISTRI WIDTH 16.9 % (0-14.5)
[2018-07-05 01:02] LABS: ALBUMIN 2.4 gm/dl (3.1-4.5); ALKALINE PHOSPHATASE 138 U/L (45-117); BUN 35 mg/dl (7-24); CHLORIDE 113 mmol/L (98-107); CREATININE 0.92 mg/dL (0.55-1.02); POTASSIUM 4.6 mmol/L (3.5-5.1); SGOT/AST 21 IU/L (3-35); SGPT/ALT 24 U/L (12-78); SODIUM 143 mmol/L (136-145); TOTAL PROTEIN 6.8 gm/dL (6.4-8.2)
[2018-07-05 01:03] LABS: ACETAMINOPHEN (TYLENOL) < 5.0 ug/ml (10-30); ETHYL ALCOHOL < 3.0 mg/dl (<3); TROPONIN I < 0.015 ng/ml (<0.045)
[2018-07-05 02:11] LABS: BILIRUBIN NEGATIVE (NEGATIVE); BLOOD 1+ (NEGATIVE); CLARITY TURBID (CLEAR); COLOR YELLOW (YELLOW); GLUCOSE NEGATIVE (NEGATIVE); KETONE NEGATIVE (NEGATIVE); LEUKO ESTERASE 3+ (NEGATIVE); NITRITE POSITIVE (NEGATIVE); PH 5.5 (5.0-9.0); SPECIFIC GRAVITY 1.025 (1.005-1.030); UROBILINOGEN 0.2 E.U./dl (0.2-1.0)
[2018-07-05 02:27] VITALS: BP 151/75
[2018-07-05 02:27] LABS: BACTERIA 3+; WBC TNTC wbc/hpf (0-5)
[2018-07-05 02:28] LABS: RBC 16-20 rbc/hpf (0-2)
[2018-07-05 02:34] LABS: URINE AMPHETAMINES < 1000 (1000ng/ml); URINE BARBITURATES < 200 (200ng/ml); URINE BENZODIAZEPINES < 200 (200ng/ml); URINE CANNABINOIDS (THC) < 50 (50ng/ml); URINE COCAINE < 300 (300ng/ml); URINE METHADONE < 300 (300ng/ml); URINE OPIATES < 300 (300ng/ml)
[2018-07-05 02:35] LABS: URINE PHENCYCLIDINE < 25 (25ng/ml)
== END 2018-07-05 03:45 | disposition short-term general hospital (02) ==
LOC: ED 23:56
PROVIDERS: Student in an Organized Health Care Education/Training Program
DX: G40.801 Other epilepsy, not intractable, with status epilepticus (principal); I11.0 Hypertensive heart disease with heart failure; I50.9 Heart failure, unspecified; I48.91 Unspecified atrial fibrillation; G89.29 Other chronic pain; J44.9 Chronic obstructive pulmonary disease, unspecified; E78.5 Hyperlipidemia, unspecified; E03.9 Hypothyroidism, unspecified; E66.01 Morbid (severe) obesity due to excess calories; I25.2 Old myocardial infarction; M41.80 Other forms of scoliosis, site unspecified; M19.90 Unspecified osteoarthritis, unspecified site; Z79.899 Other long term (current) drug therapy; Z90.49 Acquired absence of other specified parts of digestive tract; Z98.890 Other specified postprocedural states; Z86.73 Personal history of transient ischemic attack (TIA), and cerebral infarction without residual deficits; Z88.1 Allergy status to other antibiotic agents; Z88.0 Allergy status to penicillin; Z88.8 Allergy status to other drugs, medicaments and biological substances

== ENCOUNTER 2018-12-25 09:02 | Inpatient (IN) | payer MEDICARE, BC ==
[2018-12-25] VITALS (10 sets, daily range): BP systolic 103–131; BP diastolic 25–59
[~2018-12-25] VITALS: Ht 170.1 cm; Wt 114.9 kg
--- NOTE | ~2018-12-25 | PR ---
[place], [place] PROGRESS NOTE NAME: RENETTA GUILLAUME UNIT #: [id number] ROOM: 507 DOCTOR: GLORIA KU MD BIRTHDATE: [birth year] DOS: 12/27/2018 SUBJECTIVE: The patient is feeling about the same. No new complaints. She has some expressive dysphasia, says she has difficulty in communicating. OBJECTIVE: GENERAL APPEARANCE: The patient is alert and oriented x 3, in no visible distress. Generalized weakness. VITAL SIGNS: Blood pressure 120/62, heart rate of 61 beats per minute, breathing 18 times per minute, temperature 98.9 degrees Fahrenheit. HEENT AND NECK: Exam within normal limits. CARDIOVASCULAR SYSTEM: Heart rate is regular in rate and rhythm. S1 and S2 normally audible. LUNGS: Clear to auscultation. ABDOMEN: Soft, nontender. No obvious organomegaly. Bowel sounds are present. EXTREMITIES: Without significant cyanosis or edema. IMPRESSION: 1. The patient with gastrointestinal bleed and anemia, status post blood transfusion, undergoing endoscopy by Dr. Bae today. 2. Recurrent nausea, vomiting and dehydration, being treated with hydration with normal saline. 3. Severe anxiety disorder, treated with buspirone now. 4. Chronic constipation, treated with MiraLax. The patient is moving bowels. 5. Late-onset Alzheimer's-type dementia, is treated with rivastigmine. 6. Coronary artery disease of the [place] vessels without chest pain. 7. Hypothyroidism, replaced with levothyroxine. 8. Major depression, recurrent, moderate, treated and controlled with Cymbalta. GLORIA KU MD CM:PNTRANS [id number] GLORIA KU MD 12/27/18 2348 interface
--- NOTE | ~2018-12-25 | WRIGHTHP ---
[place], [place] PATIENT HISTORY AND PHYSICAL EXAM NAME: RENETTA GUILLAUME [facility] #: [id number] UNIT #: [id number] ROOM: 507 DOCTOR: GLORIA KU MD BIRTHDATE: [birth year] DOS: 12/25/2018 HISTORY OF PRESENT ILLNESS: The patient presented to the Emergency Department at [facility] with anemia and hemoglobin of 7 while she was anticoagulated on Xarelto. PAST MEDICAL HISTORY: She has a past medical history of: 1. Benign essential hypertension. 2. Coronary artery disease of the [place] vessels. 3. Scoliosis of the lower back. 4. History of pulmonary embolism. 5. Hyperlipidemia. 6. Umbilical hernia. The patient was admitted for anemia and probable gastrointestinal bleed. The patient's Xarelto has been stopped. Dr. Bae, the GI [facility] consultant is planning to do an endoscopy on her tomorrow. No chest pain, no shortness of breath, no other GI or urinary symptoms. She has not noticed any blood in her stools. REVIEW OF SYSTEMS: RESPIRATORY: No increasing shortness of breath. GASTROINTESTINAL: No nausea, vomiting, diarrhea or constipation. CARDIOVASCULAR: No chest pains or palpitations. FAMILY HISTORY: Noncontributory. HOME MEDICATIONS: The patient takes GLORIA KU MD CM:HISPHYS:PATIENT HISTORY AND PHYSICAL EXAMINATION [id number] GLORIA KU MD 12/26/18 1104 interface
--- NOTE | ~2018-12-25 | WRIGHTHP ---
[place], [place] PATIENT HISTORY AND PHYSICAL EXAM NAME: RENETTA GUILLAUME [facility] #: [id number] UNIT #: [id number] ROOM: 507 DOCTOR: GLORIA KU MD BIRTHDATE: [birth year] DOS: 12/25/2018 HISTORY OF PRESENT ILLNESS: The patient is an 83-year-old female who presented to the Emergency Department with recurrent nausea and vomiting, dehydration and severe anxiety with elevation of BUN and creatinine. After admission and initial treatment, the patient is starting to feel somewhat better. No chest pain, no shortness of breath, no other GI or urinary symptoms. No dizziness or fainting episodes. REVIEW OF SYSTEMS: RESPIRATORY: No increasing shortness of breath. GASTROINTESTINAL: The patient has nausea and vomiting. No diarrhea. CARDIOVASCULAR: No chest pains or palpitations. FAMILY HISTORY: Noncontributory. ALLERGIES: KNOWN ALLERGIES TO PENICILLIN AND QUINOLONES. MEDICATIONS: Lisinopril, potassium, isosorbide, furosemide, Cymbalta, levothyroxine, metoprolol, mirtazapine, rivastigmine, and Keppra. PHYSICAL EXAMINATION: GENERAL: Alert, oriented x 3, in no visible distress. HEENT AND NECK: Extraocular movements are intact. Sclerae are anicteric. Oral mucosa is moist and clean. No obvious facial weakness. Neck is supple without any lymphadenopathy. No thyromegaly. No JVD. No carotid arterial bruits. LUNGS: Clear to auscultation. No wheezing. No rhonchi. CARDIOVASCULAR SYSTEM: Heart rate is regular in rate and rhythm. S1 and S2 normally audible. No significant murmur or any other abnormal cardiac sounds. ABDOMEN: Soft, nontender. No obvious organomegaly. Bowel sounds are present. No obvious herniation. EXTREMITIES: Without significant cyanosis or edema. Warm to touch. CENTRAL NERVOUS SYSTEM: Alert and oriented x 3. Cranial nerves II-XII are intact. Speech is normal. The patient is able to move all extremities. Normal muscle strength. Deep tendon reflexes are equal on both sides. Plantars were downgoing. IMPRESSION: 1. The patient with recurrent nausea and vomiting and dehydration, to be treated with hydration with normal saline. Serum electrolytes to be repeated. 2. Severe anxiety disorder to be treated with buspirone. 3. Chronic constipation, treated with MiraLax. 4. Late onset Alzheimer's type dementia, treated with rivastigmine. 5. Benign essential hypertension. The patient is on metoprolol and lisinopril. Blood pressures to be monitored and treated. 6. Coronary artery disease of the [place] vessels without chest pains with isosorbide. 7. Major depression, recurrent, moderate, treated and controlled with Cymbalta. 8. Hypothyroidism, replaced with levothyroxine. [place], [place] PATIENT HISTORY AND PHYSICAL EXAM NAME: AUNDREARENETTA W UNIT #: [id number] ROOM: [facility] DOCTOR: GLORIA KU MD BIRTHDATE: [birth year] GLORIA KU MD CM:HISPHYS:PATIENT HISTORY AND PHYSICAL EXAMINATION 1102 1110 GLORIA KU MD 12/26/18 1109 interface
--- NOTE | ~2018-12-25 | O ---
[place], [place] OPERATIVE NOTE NAME: RENETTA GUILLAUME UNIT #: [id number] ROOM: 507 DOCTOR: SAWYER WILLARD MD BIRTHDATE: [birth year] DOS: 12/27/2018 GASTROENDOSCOPIC REPORT INDICATIONS: The patient is an 83-year-old who has presented with chief complaint of abdominal pain, anemia, epigastric distress. PROCEDURE: Today's procedure part of investigation is panendoscopy and colonoscopy. PREMEDICATION: Propofol. SCOPE: Olympus forward-viewing gastroscope Q10 video. REPORT: After putting the patient in left lateral position and application of lubricant to the scope, the scope was introduced. Thereafter, under direct visualization, advanced through the length of esophagus without difficulty. Gastric pouch was entered. Gastritis was seen. Antral biopsy obtained. Duodenitis, duodenal erosions, multiple small duodenal ulcers were identified, photographed. Antral biopsy obtained. GI reflexion of the scope reveals ____ to be benign. Air was suctioned out. The patient was extubated, tolerated the procedure well. IMPRESSION: Gastritis, multiple small duodenal ulcers. PLAN AND DISCUSSION: Protonix 40 mg day. We are going to proceed with colonoscopy. GASTROENDOSCOPIC REPORT The patient has presented with anemia, undergoing investigation. PROCEDURE: Today's procedure part of investigation is colonoscopy. PREMEDICATION: Propofol. SCOPE: Olympus forward-viewing colonoscope 10L video. REPORT: After putting the patient in left lateral position and application of lubricant to the scope, the scope was introduced. Thereafter, under direct visualization, advanced through the length of colon with difficulty. Difficulty being redundancy of the colon, incarceration of the colon into the umbilical hernia and compromise and flow of the stool in a direct manner; however, patent enough to pass the right colon contents through the transverse and descending colon. However, we were not able to get it beyond this partially incarcerated segment because the scope ends up into the herniation and it is dangerous to push beyond and may perforate. The patient extubated, tolerated the procedure well. IMPRESSION: Redundant colon partially incarcerated, transverse colon into [place], [place] OPERATIVE NOTE NAME: RENETTA GUILLAUME UNIT #: [id number] ROOM: 507 DOCTOR: SAWYER WILLARD MD BIRTHDATE: [birth year] umbilical hernia, diverticulosis. PLAN AND DISCUSSION: Resumption of feeding supportive management. SAWYER WILLARD MD CM:OPRECORD:OPERATIVE NOTE [id number] SAWYER WILLARD MD 12/27/18 2250 interface
--- NOTE | ~2018-12-25 | DS ---
[place], [place] DISCHARGE SUMMARY [id number] UN[facility] #: [id number] ROOM: 507 DOCTOR: GLORIA KU MD BIRTHDATE: [birth year] DOS: 12/29/2018 DISCHARGE DIAGNOSES: 1. Anemia of chronic disease. 2. Nausea, vomiting and dehydration. 3. Severe anxiety disorder. 4. Chronic constipation, treated with MiraLax. 5. Late onset Alzheimer's type dementia. 6. Benign essential hypertension. 7. Coronary artery disease of the viejas vessels. 8. Major depression, recurrent, moderate. 9. Hypothyroidism. 10. Generalized seizure disorder. HOSPITAL COURSE: The patient presented to the Emergency Department at [facility] with nausea, vomiting and dehydration, severe anxiety and elevation of BUN and creatinine. 1. The patient was admitted, started on hydration with normal saline and Dr. Bae was consulted, who took her for panendoscopy. The patient was heme negative on iFOBT results. The patient's colonoscopy showed redundant colon partially incarcerated, transverse colon into umbilical hernia and diverticulosis. EGD showed gastritis and multiple small duodenal ulcers and the patient was started on Protonix. 2. Advanced adult failure to thrive. We took bedsore and fall precautions. 3. Hypothyroidism, replaced with levothyroxine. 4. Coronary artery disease of viejas vessels without chest pains. 5. Late onset Alzheimer's type dementia, treated with rivastigmine. 6. Chronic constipation. The patient is moving bowels with MiraLax. 7. Severe generalized anxiety disorder. The patient was started on buspirone. She appears more relaxed now. DISCHARGE MANAGEMENT: Lisinopril 20 mg a day, potassium chloride 20 mEq daily, isosorbide mononitrate 30 mg a day, furosemide 40 mg a day, Cymbalta 30 mg a day, levothyroxine 75 mcg daily, metoprolol 25 mg b.i.d., mirtazapine 15 mg at bedtime, rivastigmine 6 mg b.i.d., Keppra 1000 mg b.i.d., buspirone 5 mg 3 times a day. [place], [place] DISCHARGE SUMMARY NAME: RENETTA GUILLAUME UNIT #: [id number] ROOM: 507 DOCTOR: GLORIA KU MD BIRTHDATE: [birth year] GLORIA KU MD CM:GWENDOLYN [id number] GLORIA KU MD 12/29/18 1558 interface
--- NOTE | ~2018-12-25 | POSTOPNOTE ---
[place], [place] POSTOPERATIVE PROGRESS NOTE NAME: RENETTA GUILLAUME UNIT #: [id number] ROOM: 507 DOCTOR: SAWYER WILLARD MD BIRTHDATE: [birth year] DATE: 12/27/18 GI NOTE PREOPERATIVE DIAGNOSIS: ANEMIA, UNDERGOING INVESTIGATION POSTOP LOWER GI PROC/FINDINGS: REDUNDANT COLON PARTIALLY INCARCERATED, TRANSVERSE COLON INTO UMBILICAL HERNIA, DIVERTICULOSIS LOWER GI PROCEDURE/SURGERY: COLONOSCOPY PREOPERATIVE DIAGNOSIS: POSTOP UPPER GI PROC/FINDINGS: GASTRITIS, MULTIPLE SMALL DUODENAL ULCERS UPPER GI PROCEDURE/SURGERY:EGD WITH BIOPSY SAWYER WILLARD MD CM:POSTOPN [id number] SAWYER WILLARD MD 01/01/19 1004 JOSE CASTANEDA MIS.R
--- NOTE | ~2018-12-25 | CON ---
[place], [place] REPORT OF CONSULTATION NAME: RENETTA GUILLAUME UNIT #: [id number] ROOM: 507 DOCTOR: SAWYER WILLARD MD BIRTHDATE: [birth year] DOS: 12/25/2018 GASTROENDOSCOPIC REPORT HISTORY OF PRESENT ILLNESS: This is an 83-year-old patient who has presented with chief complaint of anemia, drop in H and H, H and H of 7 and 22. The patient on Xarelto. Xarelto has been kept on hold. BUN and creatinine 48 and 1.5, transfusion to be undertaken. Iron studies are normal, B12, folate are within normal limit. The patient is residing in a [facility]. PAST MEDICAL HISTORY: Associated with failure to thrive, coronary artery disease, renal insufficiency, obesity, CVA, bedridden, nonambulatory, atrial fibrillation. FAMILY HISTORY: Noncontributory. MEDICATIONS: At home reviewed. ALLERGIES: PENICILLIN, CIPROFLOXACIN, LEVOFLOXACIN, AVELOX. SOCIAL HISTORY: Nonsmoker, nonalcohol consumer. REVIEW OF SYSTEMS: HEENT: Denies double vision, blurred vision. RESPIRATORY: Denies acute shortness of breath. CARDIOVASCULAR: Denies chest pain. DIGESTIVE SYSTEM: No hematemesis, no hematochezia. PHYSICAL EXAMINATION: VITAL SIGNS: Stable. HEENT: Within normal limits. NECK: Supple, no thyromegaly, no cervical lymphadenopathy. CHEST: Symmetric anatomy, equal expansion. HEART: Atrial fibrillation, moderate ventricular response. ABDOMEN: Obese, large, soft. No hepato-organomegaly. EXTREMITIES: 1+ pedal edema. NEUROLOGIC: Alert and oriented. IMPRESSION: Anemia, drop in H and H, atrial fibrillation, on Xarelto, otherwise as dictated above. PLAN AND DISCUSSION: We are going to proceed with EGD and colonoscopy after transfusion. [place], [place] REPORT OF CONSULTATION NAME: RENETTA GUILLAUME UNIT #: [id number] ROOM: 507 DOCTOR: SAWYER WILLARD MD BIRTHDATE: [birth year] SAWYER WILLARD MD CM:CONSTR:REPORT OF CONSULTATION 6030 12/25/18 1708 interface
--- NOTE | ~2018-12-25 | EKG ---
[place], [place] ELECTROCARDIOGRAM REPORT NAME: RENETTA GUILLAUME UNIT #: [id number] ROOM: 507 DOCTOR: DIANA DRAFT REPORT BIRTHDATE: [birth year] [facility] Test Date: 2018-12-25 Test Time: 10:19:43 Pat Name: RENETTA GUILLAUME Department: Room: 507 Gender: F Quahogger: Rosa Maria Rodas : 1935 Requested By: LJ CARDENAS Order Number: [id number] Reading MD: Faviola Conley MD Measurements Intervals [place] Rate: 64 P: [place]: QRS: 14 QRSD: 84 T: 55 QT: 411 QTc: 424 Interpretive Statements Sinus rhythm Compared to ECG 04/04/2018 20:01:05 Junctional rhythm now present Sinus rhythm no longer present Electronically Signed On 12-26-2018 12:28:16 PDT by Faviola Conley MD CM:EKGRPT:ELECTROCARDIOGRAM REPORT [id number] LJ ARCE DRAFT REPORT LJ CARDENAS DO
--- NOTE | ~2018-12-25 | PR ---
[place], [place] PROGRESS NOTE [id number] UNIT #: [id number] ROOM: 507 DOCTOR: ELMIRA MANZO,GOLRIA Thakkar BIRTHDATE: [birth year] DOS: 12/28/2018 SUBJECTIVE: The patient is status post panendoscopy yesterday by Dr. Bae showing gastritis and multiple small duodenal ulcers, started on Protonix and on colonoscopy showed redundant transverse colon partially incarcerated into umbilical hernia and diverticulosis. OBJECTIVE: GENERAL APPEARANCE: The patient is alert and oriented x 3, in no visible distress. Generalized weakness. VITAL SIGNS: Blood pressure 102/43, heart rate of 68 beats per minute, breathing 20 times per minute, temperature 98.7 degrees Fahrenheit. HEENT AND NECK: Exam within normal limits. CARDIOVASCULAR SYSTEM: Heart rate is regular in rate and rhythm. S1 and S2 normally audible. LUNGS: Clear to auscultation. ABDOMEN: Soft, nontender. No obvious organomegaly. Bowel sounds are present. EXTREMITIES: Without significant cyanosis or edema. IMPRESSION: 1. The patient with gastrointestinal bleed and anemia. Hemoglobin stable at 9.3, normal platelets. Status post EGD and colonoscopy by Dr. Bae, kept on Protonix. 2. Recurrent nausea, vomiting and dehydration. The patient being hydrated with normal saline and serum electrolytes monitored. BUN and creatinine of 38 and 1.35. 3. Major depression, recurrent, moderate, treated and controlled with Cymbalta. 4. Hypothyroidism, replaced with levothyroxine. 5. Coronary artery disease of shinnecock vessels without chest pains. 6. Late onset Alzheimer type dementia, being treated with rivastigmine. 7. Chronic constipation, controlled with MiraLax. The patient moving bowels. 8. Severe generalized anxiety disorder, treated with buspirone now. GLORIA KU MD CM:PNTRANS 23 [phone] GLORIA KU MD 12/29/18123 interface
[~2018-12-25 09:02] MED LIST changes: -BUSPAR5 MG PO; -Hytone 2.5% Oin30 GM T; -OCUVITE WITH L1 EACH PO; -RIVASTIGMINE TAR6 M1 PO; -ZESTRIL20 MG PO
[2018-12-25 10:35] LABS: BASO % 0.3 % (0.0-1.0); EOS # 0.2 10*3/uL (0.0-0.4); EOS % 3.8 % (1.0-4.0); HEMATOCRIT 24.7 % (37.0-47.0); HEMOGLOBIN 7.5 g/dl (12.0-16.0); LYMPH # 0.9 10*3/uL (1.3-4.4); LYMPH % 23.6 % (27.0-41.0); MEAN CORPUSCULAR HGB 30.4 pg (27.0-31.0); MEAN CORPUSCULAR HGB CONC 30.4 g/dl (33.0-37.0); MEAN PLATELET VOLUME 10.2 fl (9.6-12.3); MONO # 0.4 10*3/uL (0.1-1.0); MONO % 10.3 % (3.0-9.0); NEUT # 2.4 10*3/uL (2.3-7.9); NEUT % 61.5 % (47.0-73.0); PLATELET COUNT AUTOMATED 134 10*3/uL (130-400); RED BLOOD COUNT 2.47 10*6/uL (4.10-5.10); RED CELL DISTRI WIDTH 14.8 % (0-14.5); WHITE BLOOD COUNT 3.9 10*3/uL (4.8-10.8)
[2018-12-25] MEDS ORDERED: OCUVITE WITH L1 EACH PO (10:38)
[2018-12-25] MEDS ORDERED: RIVASTIGMINE TAR6 M1 PO (10:39)
[2018-12-25] MEDS ORDERED: Hytone 2.5% Oin30 GM T (10:40)
[2018-12-25] MEDS ORDERED: IRON325 M1 PO (10:43)
[2018-12-25] MEDS ORDERED: ZESTRIL20 MG PO (10:44)
[2018-12-25 10:46] LABS: ACT PARTIAL THROMBO TIME 29.7 SECONDS (20.0-32.1); INTERNATIONAL NORM RATIO 1.4 (2.0-3.5)
[2018-12-25 10:49] LABS: ALBUMIN 2.5 gm/dl (3.1-4.5); ALKALINE PHOSPHATASE 244 U/L (45-117); BUN 44 mg/dl (7-24); CHLORIDE 116 mmol/L (98-107); IRON 52 ug/dL (50-170); LIPASE 290 U/L (73-393); POTASSIUM 4.1 mmol/L (3.5-5.1); SGOT/AST 68 IU/L (3-35); SGPT/ALT 68 U/L (12-78); SODIUM 145 mmol/L (136-145); TOTAL IRON BINDING CAPACITY 217 ug/dl (250-450); TOTAL PROTEIN 5.4 gm/dL (6.4-8.2)
[2018-12-25 10:55] LABS: TROPONIN I < 0.015 ng/ml (<0.045)
--- NOTE | 2018-12-25 11:05 | NUR ---
Time: 0 A 83 year old FEMALE admitted to 5E under services of DR. ELMIRA MANZO,GLORIA Weems Pt. arrived via bed from ER. Chief complaint: GI BLEED, ACUTE BLOOD LOSS, WEAKNESS. JUNG LUNA
--- NOTE | 2018-12-25 11:10 | NUR ---
NOTIFIED OF EXORIATION TO BILATERAL GLUTEAL FOLDS, REQUESTED ORDERS
[2018-12-25 11:24] LABS: FERRITIN 365.2 ng/mL (10.0-291.0)
--- NOTE | 2018-12-25 12:15 | NUR ---
IN TO SEE PATIENT
--- NOTE | 2018-12-25 14:15 | NUR ---
PHYSICAL THERAPY Nursing screen received and chart reviewed. Please order PT evaluation if functional mobility declines. Thank you. Dorina Pickett,PT,DPT.
--- NOTE | 2018-12-25 16:45 | NUR ---
1 UNIT OF PACKED RED BLOOD CELLS TRANSFUSED PER ORDER WITHOUT REACTION
--- NOTE | 2018-12-25 19:57 | NUR ---
BEDSIDE REPORT RECEIVED. PT ASLEEP, RESTING COMFORTABLY. PT RESPIRATIONS EASY AND UNLABORED. NO SIGNS OF DISTRESS AT THIS TIME. CALL LIGHT IN REACH.
[2018-12-26] VITALS: BP 130/50
--- NOTE | 2018-12-26 05:32 | NUR ---
RENETTA GUILLAUME [id number] Please refer to the physician's history and physical for past medical history, comorbid conditions, and allergies. Diagnosis: GI BLEED ACUTE BLOOD LOSS ANEMIA Isreal Score: 10,HIGH RISK WOUND DESCRIPTIONS: Wound Number: 1 Entire buttocks is red and blanchable at time of assessment. No open areas noted at time of assessment. No drainage noted at time of assessment. Bilateral heels red and blanchable at time of assessment. Surface the patient is resting on: Isoflex SKIN PREVENTION RECOMMENDATION: 1. Pressure redistribution support surface as appropriate 2. Elevate heels 3. Remove boots/TEDS every shift and reapply 4. Head of bed 30 degrees as tolerated 5. Assess nutrition and hydration 6. Manage moisture 7. Avoid the use of containment devices while in bed 8. Use absorptive products on surfaces limit layers of linens on bed 9. Turn and reposition every 1-2 hours in bed and every 1 hour in chair as tolerated 10. Weight shifts every 15 minutes while up in chair 11. Offloading with pillows or device to keep heels elevated off bed 12. Monitor skin at least every shift 13. Inspect under medical devices twice a day WOUND TREATMENT RECOMMENDATIONS: Wheelchair cushion when oob. Cleanse entire buttocks with soap and water and apply hydraguard every shift and prn for soiling. Heel raiser pro boots to bilateral feet while in bed.
[2018-12-26 07:01] LABS: BASO % 0.5 % (0.0-1.0); EOS # 0.2 10*3/uL (0.0-0.4); HEMATOCRIT 28.6 % (37.0-47.0); HEMOGLOBIN 9.2 g/dl (12.0-16.0); LYMPH # 1.1 10*3/uL (1.3-4.4); LYMPH % 26.7 % (27.0-41.0); MEAN CORPUSCULAR HGB 30.9 pg (27.0-31.0); MEAN CORPUSCULAR HGB CONC 32.2 g/dl (33.0-37.0); MEAN PLATELET VOLUME 10.9 fl (9.6-12.3); MONO # 0.4 10*3/uL (0.1-1.0); MONO % 11.1 % (3.0-9.0); NEUT # 2.3 10*3/uL (2.3-7.9); NEUT % 57.4 % (47.0-73.0); PLATELET COUNT AUTOMATED 133 10*3/uL (130-400); RED BLOOD COUNT 2.98 10*6/uL (4.10-5.10); RED CELL DISTRI WIDTH 15.1 % (0-14.5)
--- NOTE | 2018-12-26 08:31 | NUR ---
Nursing screen received and chart reviewed. Patient lives LTC at [facility] and is non -ambulatory and "bed ridden" per chart. At this time no further OT indicated. THank you Malini Marte OTR/l
--- NOTE | 2018-12-26 09:00 | NUR ---
Geothermal Production Manager in to see patient. She is a LTC resident at [facility] and plans to return there upon discharge. She states she gets up into a wheelchair with a Lynne lift for meals. urban planner following. When medically stable she will be discharged to [facility].
--- NOTE | 2018-12-26 10:56 | NUR ---
Nutritional Support Services Note: Pt was triggered for nutritional consult without actual consult reason. Pt is on clear liquid diet today and NPO tomorrow. No nutrition intervention needed at this time. Meliton Torres Certified Orthoptist Dietitian
--- NOTE | 2018-12-26 13:28 | NUR ---
PHYSICAL THERAPY Physical therapy screen complete. Per chart review and discussion with nursing, patient is LTC resident at [facility] and requires Lynne Lift for transfer to chair for meals. Patient is at PLOF and no need for skilled PT services at this time. Discharge PT order. Thank you. Dorina Pickett,PT,DPT.
[2018-12-26 16:00] VITALS: BP 135/54
[2018-12-26 20:00] VITALS: BP 124/73
--- NOTE | 2018-12-26 22:00 | NUR ---
PT REFUSED TO DRINK ALL OF PREP. SHE WAS ABLE TO GET 1/2 OF THE FIRST BOTTLE IN. EDUCATED ON THE IMPORTANCE OF DRINKING PREP. ENCOURAGED TO FINISH DRINK. WILL CONTINUE TO CHECK IN.
--- NOTE | 2018-12-26 23:00 | NUR ---
PT DOES NOT LIKE TO BE TURNED ONTO SIDE. WHEN REPOSITIONED, SHE ROLLS BACK ONTO HER BACKSIDE. PT EDUCATED ON IMPORTANCE OF TURNING AND REPOSITIONING. PT ENCOURAGED TO TURN.
[2018-12-27] VITALS: BP 138/43
--- NOTE | 2018-12-27 | NUR ---
PT ONLY DRANK 1/2 OF PREP. PT IS HAVING CONTINUOUS BOWEL MOVEMENTS AT THIS TIME. WILL ASSESS NEED FOR FLEETS ENEMA IN THE MORNING.
--- NOTE | 2018-12-27 06:29 | NUR ---
FLEETS ENEMA GIVEN. PT NOT CLEAR. TAP WATER ENEMA GIVEN, PT CLEAR AT THIS TIME.
[2018-12-27 07:41] LABS: BASO % 0.5 % (0.0-1.0); EOS # 0.2 10*3/uL (0.0-0.4); EOS % 4.4 % (1.0-4.0); HEMATOCRIT 29.7 % (37.0-47.0); HEMOGLOBIN 9.4 g/dl (12.0-16.0); LYMPH % 25.9 % (27.0-41.0); MEAN CELL VOLUME 97.1 fl (81.0-99.0); MEAN CORPUSCULAR HGB 30.7 pg (27.0-31.0); MEAN CORPUSCULAR HGB CONC 31.6 g/dl (33.0-37.0); MEAN PLATELET VOLUME 10.3 fl (9.6-12.3); MONO # 0.5 10*3/uL (0.1-1.0); MONO % 13.2 % (3.0-9.0); NEUT # 2.2 10*3/uL (2.3-7.9); NEUT % 55.7 % (47.0-73.0); PLATELET COUNT AUTOMATED 126 10*3/uL (130-400); RED BLOOD COUNT 3.06 10*6/uL (4.10-5.10); RED CELL DISTRI WIDTH 15.1 % (0-14.5); WHITE BLOOD COUNT 3.9 10*3/uL (4.8-10.8)
[2018-12-27 07:54] LABS: CREATININE 1.35 mg/dL (0.55-1.02); POTASSIUM 3.7 mmol/L (3.5-5.1)
--- NOTE | 2018-12-27 09:00 | NUR ---
Signalling And Communications Engineer in to see patient. No new needs or request at this time. When medically stable she will be discharged to [facility] where she is a LTC resident. bingo worker following.
[2018-12-27 12:00] VITALS: BP 119/62
--- NOTE | 2018-12-27 14:02 | NUR ---
Tried to contact patients daughter, left a message .Contacted [facility] to see if they have an alternate number. Called and number is disconnected.
[2018-12-27 18:59] VITALS: BP 126/88
[2018-12-27 19:14] VITALS: BP 126/88
[2018-12-27 19:29] VITALS: BP 131/56
[2018-12-27 20:00] VITALS: BP 132/52
--- NOTE | 2018-12-27 23:30 | NUR ---
ASSUME CARE OF PATIENT. AWAKE/ALERT FOR ASSESSMENT. ENCOURAGED PATIENT TO MOVE OFF BUTTOCKS TO AVOID PRESSURE SORES. PATIENT REFUSING AT THIS TIME. NO VOICED COMPLAINTS AT THIS TIME. CALL LIGHT IN REACH.
[2018-12-28] VITALS (7 sets, daily range): BP systolic 102–145; BP diastolic 43–66
--- NOTE | 2018-12-28 06:01 | NUR ---
PATIENT TOOK 0600 MEDICATIONS IN APPLESAUCE WITHOUT ISSUE. ENCOURAGE TO SHIFT WEIGHT FREQUENTLY. IVF MAINTAINED PER ORDER. CALL LIGHT IN REACH
[2018-12-28 07:38] LABS: HEMATOCRIT 29.2 % (37.0-47.0); HEMOGLOBIN 9.3 g/dl (12.0-16.0); MEAN CELL VOLUME 95.1 fl (81.0-99.0); MEAN CORPUSCULAR HGB 30.3 pg (27.0-31.0); MEAN CORPUSCULAR HGB CONC 31.8 g/dl (33.0-37.0); MEAN PLATELET VOLUME 11.1 fl (9.6-12.3); PLATELET COUNT AUTOMATED 137 10*3/uL (130-400); RED BLOOD COUNT 3.07 10*6/uL (4.10-5.10); RED CELL DISTRI WIDTH 14.9 % (0-14.5); WHITE BLOOD COUNT 4.7 10*3/uL (4.8-10.8)
[2018-12-28 08:07] LABS: PLATELET SUFFICIENCY NORMAL (NORMAL); TOTAL CELLS COUNTED 100 #CELLS
--- NOTE | 2018-12-28 13:38 | NUR ---
Patient bundled with warm blankets. Patient states "maybe I can sleep now."
[2018-12-29] VITALS: BP 124/46
--- NOTE | 2018-12-29 02:57 | NUR ---
PATIENT SLEEPING. NO S/S OF DISTRESS NOTED. CALL LIGHT IN REACH
--- NOTE | 2018-12-29 05:28 | NUR ---
PATIENT TOOK 0600 PILL WHOLE IN APPLESAUCE WITHOUT ISSUE. NO VOICED COMPLAINTS AT THIS TIME.
[2018-12-29 06:30] LABS: BASO % 0.2 % (0.0-1.0); EOS # 0.1 10*3/uL (0.0-0.4); HEMATOCRIT 25.4 % (37.0-47.0); HEMOGLOBIN 8.1 g/dl (12.0-16.0); LYMPH # 1.1 10*3/uL (1.3-4.4); LYMPH % 22.7 % (27.0-41.0); MEAN CELL VOLUME 96.6 fl (81.0-99.0); MEAN CORPUSCULAR HGB 30.8 pg (27.0-31.0); MEAN CORPUSCULAR HGB CONC 31.9 g/dl (33.0-37.0); MEAN PLATELET VOLUME 10.6 fl (9.6-12.3); MONO # 0.5 10*3/uL (0.1-1.0); MONO % 10.8 % (3.0-9.0); NEUT # 3.2 10*3/uL (2.3-7.9); NEUT % 64.1 % (47.0-73.0); PLATELET COUNT AUTOMATED 121 10*3/uL (130-400); RED BLOOD COUNT 2.63 10*6/uL (4.10-5.10); RED CELL DISTRI WIDTH 14.9 % (0-14.5); WHITE BLOOD COUNT 4.9 10*3/uL (4.8-10.8)
[2018-12-29 06:38] LABS: POTASSIUM 3.5 mmol/L (3.5-5.1)
[2018-12-29 06:39] LABS: CREATININE 1.34 mg/dL (0.55-1.02)
--- NOTE | 2018-12-29 07:55 | NUR ---
PT RESTING IN BED. NO DISTRESS NOTED. WILL MONITOR
[2018-12-29 08:00] VITALS: BP 116/56
[2018-12-29 12:00] VITALS: BP 123/50
[2018-12-29] MEDS ORDERED: BUSPAR5 MG PO (15:20)
[2018-12-29 16:00] VITALS: BP 129/57
--- NOTE | 2018-12-29 17:34 | NUR ---
REPORT CALLED TO [facility] SPOKE WITH AUGUST CLAUDIA TERAN NOTIFIED OF PT RETURNING TO [facility] [place]
--- NOTE | 2018-12-29 19:10 | NUR ---
Discharge instructions reviewed with patient/family. Patient receptive and verbalizes understanding. Follow-up care arranged. Written instructions given to patient/family. JAYLEEN EBCK
== END 2018-12-29 19:10 | DRG 393 ==
LOC: ED 09:02 → EDHOLD 10:12 → 5E 10:12
PROVIDERS: Emergency Medicine; Internal Medicine Gastroenterology; ADMIT Internal Medicine
PROC: 0DJD8ZZ Inspection of Lower Intestinal Tract, Via Natural or Artificial Opening Endoscopic (ICD-10-PCS; principal; 2018-12-25)
PROC: 0DB68ZX Excision of Stomach, Via Natural or Artificial Opening Endoscopic, Diagnostic (ICD-10-PCS; principal; 2018-12-25)
PROC: 30233N1 Transfusion of Nonautologous Red Blood Cells into Peripheral Vein, Percutaneous Approach (ICD-10-PCS; principal; 2018-12-25)
DX: K42.0 Umbilical hernia with obstruction, without gangrene (principal); K29.71 Gastritis, unspecified, with bleeding; K57.31 Diverticulosis of large intestine without perforation or abscess with bleeding; K26.4 Chronic or unspecified duodenal ulcer with hemorrhage; F33.1 Major depressive disorder, recurrent, moderate; E86.0 Dehydration; I10 Essential (primary) hypertension; G30.1 Alzheimer's disease with late onset; F02.80 Dementia in other diseases classified elsewhere, unspecified severity, without behavioral disturbance, psychotic disturbance, mood disturbance, and anxiety; K59.09 Other constipation; I25.10 Atherosclerotic heart disease of native coronary artery without angina pectoris; E03.9 Hypothyroidism, unspecified; E78.5 Hyperlipidemia, unspecified; F41.1 Generalized anxiety disorder; R62.7 Adult failure to thrive; E66.9 Obesity, unspecified; I48.91 Unspecified atrial fibrillation; K42.9 Umbilical hernia without obstruction or gangrene; D63.8 Anemia in other chronic diseases classified elsewhere; Z66 Do not resuscitate; Z51.5 Encounter for palliative care; Z88.0 Allergy status to penicillin; Z88.8 Allergy status to other drugs, medicaments and biological substances; Z79.899 Other long term (current) drug therapy; Z86.711 Personal history of pulmonary embolism; Z86.73 Personal history of transient ischemic attack (TIA), and cerebral infarction without residual deficits; Z74.01 Bed confinement status; Z79.01 Long term (current) use of anticoagulants; Z68.36 Body mass index [BMI] 36.0-36.9, adult

== ENCOUNTER → 2018-12-25 | Outpatient (CLI) | payer MEDICARE, BC ==
[~2018-12-25] MED LIST changes: +BUSPAR5 MG PO; +Hytone 2.5% Oin30 GM T; +OCUVITE WITH L1 EACH PO; +RIVASTIGMINE TAR6 M1 PO; +ZESTRIL20 MG PO
== END | disposition home or self-care (01) ==
LOC: TRNFUSION 00:54
DX: D64.9 Anemia, unspecified (principal)

== ENCOUNTER 2019-01-01 01:13 | Emergency (ER) | payer MEDICARE, BC ==
[~2019-01-01] VITALS: Wt 125.2 kg
--- NOTE | ~2019-01-01 | EKG ---
[place], [place] ELECTROCARDIOGRAM REPORT NAME: RENETTA GUILLAUME UNIT #: [id number] ROOM: DOCTOR: EPIPHANY DRAFT REPORT BIRTHDATE: [birth year] [facility] Test Date: 2019-01-01 Test Time: 01:36:18 Pat Name: RENETTA GUILLAUME Department: Room: Gender: F Manager Transfusion: Randy Rehman : 1935 Requested By: TAMMI KWOK Order Number: [id number] Reading MD: Steve Lion MD Measurements Intervals [place] Rate: 82 P: [place]: QRS: 5 QRSD: 76 T: 55 QT: 392 QTc: 458 Interpretive Statements Sinus rhythm with premature supraventricular complex Nonspecific ST changes Electronically Signed On 01-01-2019 8:08:10 PDT by Steve Lion MD CM:EKGRPT:ELECTROCARDIOGRAM REPORT [id number] 0808 TAMMI ARCE DRAFT REPORT TAMMI KWOK DO
[~2019-01-01 01:13] MED LIST changes: +BUSPAR5 MG PO; +Hytone 2.5% Oin30 GM T; +OCUVITE WITH L1 EACH PO; +RIVASTIGMINE TAR6 M1 PO; +ZESTRIL20 MG PO
[2019-01-01 01:50] LABS: BASO % 0.2 % (0.0-1.0); EOS # 0.2 10*3/uL (0.0-0.4); EOS % 4.3 % (1.0-4.0); HEMATOCRIT 29.7 % (37.0-47.0); HEMOGLOBIN 9.2 g/dl (12.0-16.0); LYMPH # 0.8 10*3/uL (1.3-4.4); MEAN CELL VOLUME 98.7 fl (81.0-99.0); MEAN CORPUSCULAR HGB 30.6 pg (27.0-31.0); MEAN PLATELET VOLUME 10.1 fl (9.6-12.3); MONO # 0.3 10*3/uL (0.1-1.0); MONO % 7.1 % (3.0-9.0); NEUT # 3.3 10*3/uL (2.3-7.9); NEUT % 70.2 % (47.0-73.0); PLATELET COUNT AUTOMATED 153 10*3/uL (130-400); RED BLOOD COUNT 3.01 10*6/uL (4.10-5.10); RED CELL DISTRI WIDTH 15.2 % (0-14.5); WHITE BLOOD COUNT 4.7 10*3/uL (4.8-10.8)
[2019-01-01 02:01] LABS: INTERNATIONAL NORM RATIO 1.1 (2.0-3.5)
[2019-01-01 02:09] LABS: ALBUMIN 2.5 gm/dl (3.1-4.5); ALKALINE PHOSPHATASE 296 U/L (45-117); BUN 24 mg/dl (7-24); CHLORIDE 115 mmol/L (98-107); CREATININE 1.28 mg/dL (0.55-1.02); LIPASE 574 U/L (73-393); POTASSIUM 4.2 mmol/L (3.5-5.1); SGOT/AST 50 IU/L (3-35); SGPT/ALT 56 U/L (12-78); SODIUM 144 mmol/L (136-145); TOTAL PROTEIN 5.9 gm/dL (6.4-8.2)
[2019-01-01 02:12] LABS: TROPONIN I < 0.015 ng/ml (<0.045)
[2019-01-01 02:43] LABS: BILIRUBIN NEGATIVE (NEGATIVE); BLOOD TRACE-INTACT (NEGATIVE); CLARITY CLOUDY (CLEAR); COLOR YELLOW (YELLOW); GLUCOSE NEGATIVE (NEGATIVE); KETONE NEGATIVE (NEGATIVE); LEUKO ESTERASE 2+ (NEGATIVE); NITRITE POSITIVE (NEGATIVE); PH 5.5 (5.0-9.0); SPECIFIC GRAVITY 1.015 (1.005-1.030); UROBILINOGEN 0.2 E.U./dl (0.2-1.0)
[2019-01-01 03:01] LABS: BACTERIA 2+; WBC 41-50 wbc/hpf (0-5)
[2019-01-01 03:10] VITALS: BP 110/50
== END 2019-01-01 04:12 | disposition short-term general hospital (02) ==
LOC: ED 01:13
PROVIDERS: Student in an Organized Health Care Education/Training Program
DX: G40.901 Epilepsy, unspecified, not intractable, with status epilepticus (principal); I48.91 Unspecified atrial fibrillation; G89.29 Other chronic pain; J44.9 Chronic obstructive pulmonary disease, unspecified; E78.5 Hyperlipidemia, unspecified; I11.0 Hypertensive heart disease with heart failure; I50.9 Heart failure, unspecified; E03.9 Hypothyroidism, unspecified; I25.2 Old myocardial infarction; Z88.1 Allergy status to other antibiotic agents; Z88.0 Allergy status to penicillin; Z79.899 Other long term (current) drug therapy; Z90.49 Acquired absence of other specified parts of digestive tract

== ENCOUNTER 2019-03-28 13:26 | Inpatient (IN) | payer MEDICARE, BC ==
[~2019-03-28] VITALS: Ht 170.1 cm; Wt 115.2 kg
[~2019-03-28 13:26] MED LIST changes: -ZESTRIL20 MG PO; +ZESTRIL5 MG PO
[2019-03-28 13:30] VITALS: BP 113/76
--- NOTE | 2019-03-28 13:30 | NUR ---
PT ARRIVES INCONTINENT OF BOTH BOWEL MOVEMENT AND URINE. PT CLEANED UP
--- NOTE | 2019-03-28 14:15 | NUR ---
PT MEDICATED PER EMAR WITH ATIVAN. CONT PULSE OX IN PLACE.
[2019-03-28 14:19] LABS: BASO % 0.5 % (0.0-1.0); EOS # 0.1 10*3/uL (0.0-0.4); EOS % 0.9 % (1.0-4.0); HEMATOCRIT 32.9 % (37.0-47.0); HEMOGLOBIN 10.3 g/dl (12.0-16.0); LYMPH # 1.2 10*3/uL (1.3-4.4); LYMPH % 21.6 % (27.0-41.0); MEAN CELL VOLUME 98.2 fl (81.0-99.0); MEAN CORPUSCULAR HGB 30.7 pg (27.0-31.0); MEAN CORPUSCULAR HGB CONC 31.3 g/dl (33.0-37.0); MEAN PLATELET VOLUME 10.1 fl (9.6-12.3); MONO # 0.4 10*3/uL (0.1-1.0); MONO % 6.5 % (3.0-9.0); NEUT % 70.2 % (47.0-73.0); PLATELET COUNT AUTOMATED 143 10*3/uL (130-400); RED BLOOD COUNT 3.35 10*6/uL (4.10-5.10); RED CELL DISTRI WIDTH 14.9 % (0-14.5); WHITE BLOOD COUNT 5.7 10*3/uL (4.8-10.8)
[2019-03-28 14:30] LABS: ACT PARTIAL THROMBO TIME 25.1 SECONDS (20.0-32.1); INTERNATIONAL NORM RATIO 1.1 (2.0-3.5)
[2019-03-28 14:35] LABS: ALBUMIN 3.4 gm/dl (3.1-4.5); ALKALINE PHOSPHATASE 286 U/L (45-117); BUN 45 mg/dl (7-24); CHLORIDE 112 mmol/L (98-107); CREATININE 1.66 mg/dL (0.55-1.02); LIPASE 216 U/L (73-393); SGOT/AST 69 IU/L (3-35); SGPT/ALT 65 U/L (12-78); SODIUM 143 mmol/L (136-145); TOTAL PROTEIN 6.6 gm/dL (6.4-8.2)
[2019-03-28 14:36] LABS: TROPONIN I < 0.015 ng/ml (<0.045)
[2019-03-28 14:43] LABS: BILIRUBIN NEGATIVE (NEGATIVE); BLOOD NEGATIVE (NEGATIVE); CLARITY SL CLOUDY (CLEAR); COLOR YELLOW (YELLOW); GLUCOSE NEGATIVE (NEGATIVE); KETONE NEGATIVE (NEGATIVE); LEUKO ESTERASE TRACE (NEGATIVE); NITRITE NEGATIVE (NEGATIVE); PH 5.5 (5.0-9.0); UROBILINOGEN 0.2 E.U./dl (0.2-1.0)
[2019-03-28 14:49] LABS: EPITHELIAL CELLS 0-2; RBC 0-2 rbc/hpf (0-2)
[2019-03-28 14:50] LABS: BACTERIA 2+
--- NOTE | 2019-03-28 15:18 | NUR ---
NO FURTHER TWITCHING ACTIVITY NOTED AFTER ATIVAN. PT IS NOW CRYING/MOANING INCONSOLABLE.
[2019-03-28 15:19] VITALS: BP 121/57
--- NOTE | 2019-03-28 15:34 | NUR ---
SPOKE WITH WESLEY, RECEIVING RN. ADVISED NEEDS 10 MINUTES PRIOR TO ARRIVAL OF PATIENT.
[2019-03-28 16:00] VITALS: BP 126/91
--- NOTE | 2019-03-28 16:00 | NUR ---
ADMITTED FROM ER TEARFUL & ONLY WORDS SHE CAN SAY IS "IT HURTS" UNABLE TO SAY WHERE OR WHAT HURTS. IV IS INFILTRATED & 2 NEW PLACED IN LEFT FOREARM PER POLICY AND IVF RESTARTED
[2019-03-28] MEDS ORDERED: LOPERAMIDE HCL2 MG PO (18:35)
[2019-03-28] MEDS ORDERED: LEVOXYL88 MCG PO (18:49)
--- NOTE | 2019-03-28 19:10 | NUR ---
DR KU CALLED WITH ADMISSION - ORDERS RECEIVED
[2019-03-28 20:00] VITALS: BP 155/45
[2019-03-29] VITALS: BP 124/66
[2019-03-29 08:00] VITALS: BP 94/41
--- NOTE | 2019-03-29 08:48 | NUR ---
3 SIDE RAILS UP & BED ALARM ON WITH YELLOW SLIPPERS & SIGNAGE. HEEL RAISERS & TUBIGRIPS PLACED. HEP LOCK PATENT X2 SITES. COOL, WARM SKIN
[2019-03-29 12:00] VITALS: BP 132/42
[2019-03-29 16:00] VITALS: BP 113/49
--- NOTE | 2019-03-29 19:30 | NUR ---
TOOK OVER CARE OF PT AT THIS TIME. PT RESTING IN BED. RESPIRATIONS EASY AND UNLABORED ON 2L NC. NO S/S OF DISTRESS. SAFETY MEASURES IN PLACE. CALL LIGHT IN REACH.
[2019-03-29 20:00] VITALS: BP 116/69
[2019-03-29 20:50] VITALS: BP 90/52
--- NOTE | 2019-03-29 20:50 | NUR ---
PT ASSESSED AT THIS TIME. HS MEDICATIONS GIVEN IN APPLESAUCE AND TAKEN WITH EASE. PT BLOOD PRESSURE 90/52 MANUALLY, LOPRESSOR IS HELD AT THIS TIME. HR WNL. PT RESPIRAITONS ARE UNLABORED ON 2L NC. PT TALKING BUT ONLY SAYING 1-2 WORDED SENTENCES. PT HAS NO SIGNS OF DISTRESS AT THIS TIME. PT RE ORIENTED TO FACILITY AND USE OF CALL LIGHT IN . WILL CONTINUE TO MONITOR. HOB ELEVATED. BED LOWEST POSITION, WHEELS LOCKED. BED ALARM IN PLACE, CALL LIGHT IN REACH.
--- NOTE | 2019-03-29 23:23 | NUR ---
PT RESTING IN BED. RESPIRATIONS EASY AND UNLABORED ON 2L NC. HOB ELEVATED. NO S/S OF DISTRESS NOTED. SAFETY MEASURES IN PLACE. CALL LIGHT IN REACH.
[2019-03-30] VITALS: BP 142/52
--- NOTE | 2019-03-30 02:56 | NUR ---
PT RESTING IN BED. NO S/S OF DISTRESS. RESPIRATIONS EASY ON 2L NC. CALL LIGHT IN REACH.
--- NOTE | 2019-03-30 06:05 | NUR ---
PT RESTING, RESPIRATIONS EASY ON 2L NC. NO S/S OF DISTRESS. SAFETY MEASURES IN PLACE, CALL LIGHT IN REACH.
[2019-03-30 07:43] VITALS: BP 98/50
[2019-03-30 08:00] VITALS: BP 124/50
--- NOTE | 2019-03-30 08:38 | NUR ---
MOVED TO 532 AFTER REQUIRES ISOLATION FOR ESBL OF URINE
--- NOTE | 2019-03-30 11:43 | NUR ---
ORDER TO CONSULT ID ABOUT ANTIBIOTIC D/T MULTIPLE ALLERGIES
--- NOTE | 2019-03-30 11:45 | NUR ---
MESSAGE LEFT FOR DR CLARK ABOUT CONSULT
[2019-03-30 12:00] VITALS: BP 139/65
--- NOTE | 2019-03-30 14:52 | NUR ---
IV started right forearm with #20 protective cath after 1 attempts. Site prepped with Chloroprep. Sterile dressing applied. Patient tolerated procedure well. INCONTINENT FOR FOUL ODOR STOOL THAT IS MUSHY - WILL COLLECT C-DIFF WITH NEXT STOOL. COLT BLANCO
[2019-03-30 16:00] VITALS: BP 126/45
[2019-03-30 20:00] VITALS: BP 118/71
[2019-03-31] VITALS: BP 138/44
[2019-03-31 06:39] LABS: CREATININE 1.34 mg/dL (0.55-1.02)
--- NOTE | 2019-03-31 07:30 | NUR ---
Patient resting quietly with no c/o discomfort. Respirations easy and regular. Vital signs stable. No overt distress. DARIEN BRINK
--- NOTE | 2019-03-31 07:30 | NUR ---
Patient resting quietly with no c/o discomfort. Respirations easy and regular. Vital signs stable. No overt distress. DARIEN BRINK
--- NOTE | 2019-03-31 07:39 | NUR ---
Patient is Correction at [facility]. FRONT DESK AGENT faxed updates to [facility]. -TIFFANY Khan
[2019-03-31 08:00] VITALS: BP 125/36
--- NOTE | 2019-03-31 08:20 | NUR ---
24 HR chart check completed.
--- NOTE | 2019-03-31 09:01 | NUR ---
Nursing screen received and occupational therapy referral. Will follow up with patient. Thank you. Loan Rivera, OTR/L
--- NOTE | 2019-03-31 10:30 | NUR ---
Trimmer Loader in to see patient. She is a LTC resident at [facility] and plans to return there upon discharge. She thinks she lives at [place]. She states she gets around in a wheelchair. She does have breathing treatments at the facility. trim line worker following.
--- NOTE | 2019-03-31 10:40 | NUR ---
Occupational therapy orders received and chart reviewed in full on floor five. Patient precautions include fall risk, B/L UE and LE weakness, contact precautions, and confusion. Per discussion with patient and chart review, patient is a LTC patient and is jacob lifted at baseline. Patient is at her baseline. No further OT treatment are indicated, evaluation only. OT recommends patient return to prior living. Patient complexity is moderate, [id number]. Thank you. Loan Rivera, OTR/L
[2019-03-31 12:00] VITALS: BP 100/47
[2019-03-31 16:00] VITALS: BP 101/56
[2019-03-31 16:58] LABS: BASO % 0.3 % (0.0-1.0); EOS # 0.1 10*3/uL (0.0-0.4); EOS % 3.9 % (1.0-4.0); HEMATOCRIT 26.9 % (37.0-47.0); HEMOGLOBIN 8.4 g/dl (12.0-16.0); LYMPH # 1.1 10*3/uL (1.3-4.4); LYMPH % 32.1 % (27.0-41.0); MEAN CELL VOLUME 98.9 fl (81.0-99.0); MEAN CORPUSCULAR HGB 30.9 pg (27.0-31.0); MEAN CORPUSCULAR HGB CONC 31.2 g/dl (33.0-37.0); MEAN PLATELET VOLUME 10.5 fl (9.6-12.3); MONO # 0.3 10*3/uL (0.1-1.0); MONO % 10.3 % (3.0-9.0); NEUT # 1.8 10*3/uL (2.3-7.9); NEUT % 53.1 % (47.0-73.0); PLATELET COUNT AUTOMATED 91 10*3/uL (130-400); RED BLOOD COUNT 2.72 10*6/uL (4.10-5.10); RED CELL DISTRI WIDTH 14.6 % (0-14.5); WHITE BLOOD COUNT 3.3 10*3/uL (4.8-10.8)
--- NOTE | 2019-03-31 18:30 | NUR ---
PHYSICAL THERAPY Nursing screen received and physical therapy order received. Patient is LTC resident and requires jacob lift at baseline. No PT needs indicated at this time. Discharge PT order.Thank you. Dorina Pickett,PT,DPT.
[2019-03-31 20:00] VITALS: BP 134/46
--- NOTE | 2019-03-31 22:00 | NUR ---
PT ASKED WHAT HER BP WAS AND AFTER I TOLD HER SHE STATED THAT HER BP HAS BEEN RUNNING LOW FOR MONTHS AND SHE WOULD NOT LIKE TO GET HER BP MEDICATION AT THIS TIME.
[2019-04-01] VITALS (7 sets, daily range): BP systolic 111–143; BP diastolic 37–68
--- NOTE | 2019-04-01 02:34 | NUR ---
PT LYING IN BED SLEEPING. RESPIRATIONS EASY, NONLABORED. NO SIGNS OF DISTRESS NOTED. CALL LIGHT WITHIN REACH.
--- NOTE | 2019-04-01 10:30 | NUR ---
Event Coordinator in to see patient. No new needs or request at this time. When medically stable she will be discharged to [facility] where she is a LTC resident. bridge worker following. Per multidisciplinary discharge planning meeting she is being treated with Merrem for E. coli resistant UTI, mentation is improving, BUN/Cr levels are on downward trend.
[2019-04-02] VITALS: BP 134/44
--- NOTE | 2019-04-02 03:01 | NUR ---
Patient sleeping. Respirations relaxed and easy. Siderails up . [place] on. No signs of distress noted. Call light within reach. TATYANA CURRY
--- NOTE | 2019-04-02 03:16 | NUR ---
24 HR chart check completed.
[2019-04-02 08:00] VITALS: BP 139/50
--- NOTE | 2019-04-02 08:35 | NUR ---
LANCE CREWMEMBER/MLRS SERGEANT faxed updates to [facility]. Patient is jail and can return when medically stable. -TIFFANY Khan
--- NOTE | 2019-04-02 09:10 | NUR ---
PT RESTING IN BED. NO DISTRESS NOTED. WILL MONITOR
[2019-04-02] MEDS ORDERED: LEVETIRACE500 MG/5 M PO (11:12)
[2019-04-02 12:00] VITALS: BP 114/49
--- NOTE | 2019-04-02 12:25 | NUR ---
GAUNTLET PAIRER notified of patients discharge. GAUNTLET PAIRER spoke with RN. GAUNTLET PAIRER spoke with [facility]. They are able to transport at 2pm. GAUNTLET PAIRER spoke with RN and informed her of the transport time. GAUNTLET PAIRER reached out and left a message for Patients daughter Nieves. Patients daughter returned call to Jig And Fixture Maker Dorina, who informed her of the patient being transferred back to [facility] via [facility]. GAUNTLET PAIRER will fax discharge orders to [facility]. -TIFFANY Khan
--- NOTE | 2019-04-02 13:41 | NUR ---
ATTEMPTED TO CALL AND GIVE REPORT TO [facility] PHONE RINGING AND GOING TO STRAIGHT TO VOICEMAIL MESSAGE LEFT
--- NOTE | 2019-04-02 14:10 | NUR ---
Discharge instructions reviewed with patient/family. Patient receptive and verbalizes understanding. Follow-up care arranged. Written instructions given to patient/family. JAYLEEN BECK
--- NOTE | 2019-04-02 14:15 | NUR ---
CANAL SUPERINTENDENT faxed discharge orders to [facility].
== END 2019-04-02 14:10 | DRG 682 ==
LOC: ED 13:26 → EDHOLD 15:14 → 5E 15:14
PROVIDERS: Family Medicine; Nurse Practitioner; Student in an Organized Health Care Education/Training Program; ADMIT Internal Medicine
DX: N17.0 Acute kidney failure with tubular necrosis (principal); G93.41 Metabolic encephalopathy; N39.0 Urinary tract infection, site not specified; F02.81 Dementia in other diseases classified elsewhere, unspecified severity, with behavioral disturbance; I13.0 Hypertensive heart and chronic kidney disease with heart failure and stage 1 through stage 4 chronic kidney disease, or unspecified chronic kidney disease; E03.9 Hypothyroidism, unspecified; Z96.1 Presence of intraocular lens; K58.9 Irritable bowel syndrome, unspecified; E66.01 Morbid (severe) obesity due to excess calories; G89.29 Other chronic pain; M19.079 Primary osteoarthritis, unspecified ankle and foot; M25.561 Pain in right knee; E86.0 Dehydration; Z16.12 Extended spectrum beta lactamase (ESBL) resistance; J44.9 Chronic obstructive pulmonary disease, unspecified; Z66 Do not resuscitate; Z51.5 Encounter for palliative care; I50.9 Heart failure, unspecified; R62.7 Adult failure to thrive; F41.1 Generalized anxiety disorder; E78.2 Mixed hyperlipidemia; B96.20 Unspecified Escherichia coli [E. coli] as the cause of diseases classified elsewhere; K74.60 Unspecified cirrhosis of liver; G40.409 Other generalized epilepsy and epileptic syndromes, not intractable, without status epilepticus; N18.9 Chronic kidney disease, unspecified; G30.1 Alzheimer's disease with late onset; D50.9 Iron deficiency anemia, unspecified; Z88.1 Allergy status to other antibiotic agents; Z88.0 Allergy status to penicillin; Z86.73 Personal history of transient ischemic attack (TIA), and cerebral infarction without residual deficits; Z87.01 Personal history of pneumonia (recurrent); Z86.711 Personal history of pulmonary embolism; Z87.440 Personal history of urinary (tract) infections; I25.2 Old myocardial infarction; Z98.49 Cataract extraction status, unspecified eye; Z90.49 Acquired absence of other specified parts of digestive tract; Z82.49 Family history of ischemic heart disease and other diseases of the circulatory system; Z82.5 Family history of asthma and other chronic lower respiratory diseases; Z82.3 Family history of stroke; Z68.39 Body mass index [BMI] 39.0-39.9, adult

== ENCOUNTER 2019-12-22 16:14 | Inpatient (IN) | payer MEDICARE, BC ==
[~2019-12-22] VITALS: Ht 165.1 cm; Wt 63.1 kg
[~2019-12-22 16:14] MED LIST changes: +LEVETIRACE500 MG/5 M PO; +LEVOXYL88 MCG PO; +LOPERAMIDE HCL2 MG PO
[2019-12-22 16:18] VITALS: BP 112/45
[2019-12-22 16:51] LABS: BASO % 0.2 % (0.0-1.0); EOS # 0.1 10*3/uL (0.0-0.4); HEMATOCRIT 34.7 % (37.0-47.0); LYMPH % 19.1 % (27.0-41.0); MEAN CELL VOLUME 99.7 fl (81.0-99.0); MEAN CORPUSCULAR HGB 30.7 pg (27.0-31.0); MEAN CORPUSCULAR HGB CONC 30.8 g/dl (33.0-37.0); MEAN PLATELET VOLUME 10.4 fl (9.6-12.3); MONO # 0.3 10*3/uL (0.1-1.0); MONO % 6.4 % (3.0-9.0); NEUT # 3.7 10*3/uL (2.3-7.9); NEUT % 73.1 % (47.0-73.0); PLATELET COUNT AUTOMATED 116 10*3/uL (130-400); RED BLOOD COUNT 3.48 10*6/uL (4.10-5.10); RED CELL DISTRI WIDTH 14.4 % (0-14.5)
[2019-12-22 17:05] LABS: ALBUMIN 3.3 gm/dl (3.1-4.5); ALKALINE PHOSPHATASE 193 U/L (45-117); BUN 43 mg/dl (7-24); CHLORIDE 114 mmol/L (98-107); CREATININE 1.54 mg/dL (0.55-1.02); LIPASE 416 U/L (73-393); POTASSIUM 4.9 mmol/L (3.5-5.1); SGOT/AST 52 IU/L (3-35); SGPT/ALT 62 U/L (12-78); SODIUM 142 mmol/L (136-145); TOTAL PROTEIN 6.4 gm/dL (6.4-8.2)
[2019-12-22 17:06] LABS: TROPONIN I < 0.015 ng/ml (<0.045)
[2019-12-22 17:08] LABS: INTERNATIONAL NORM RATIO 1.2 (2.0-3.5)
[2019-12-22 17:30] VITALS: BP 114/46
[2019-12-22 18:10] LABS: BILIRUBIN NEGATIVE (NEGATIVE); BLOOD 2+ (NEGATIVE); CLARITY CLEAR (CLEAR); COLOR YELLOW (YELLOW); GLUCOSE NEGATIVE (NEGATIVE); KETONE NEGATIVE (NEGATIVE); NITRITE POSITIVE (NEGATIVE); PH 5.5 (5.0-9.0); SPECIFIC GRAVITY 1.025 (1.005-1.030); UROBILINOGEN 0.2 E.U./dl (0.2-1.0)
[2019-12-22 18:11] LABS: LEUKO ESTERASE 3+ (NEGATIVE)
[2019-12-22 18:15] LABS: WBC TNTC wbc/hpf (0-5)
[2019-12-22 18:16] LABS: BACTERIA 2+
[2019-12-22 18:36] VITALS: BP 115/48
[2019-12-22 20:20] VITALS: BP 138/52
[2019-12-22 21:00] VITALS: BP 143/91
[2019-12-23] VITALS: BP 144/61
[2019-12-23 08:00] VITALS: BP 116/62
[2019-12-23 12:00] VITALS: BP 101/43
[2019-12-23 16:00] VITALS: BP 122/62
[2019-12-23 20:00] VITALS: BP 123/40
[2019-12-24] VITALS: BP 148/48
[2019-12-24 08:00] VITALS: BP 116/50
[2019-12-24 12:00] VITALS: BP 115/52
[2019-12-24 16:00] VITALS: BP 126/64
[2019-12-24 20:00] VITALS: BP 108/27
[2019-12-25] VITALS: BP 118/27
[2019-12-25 08:00] VITALS: BP 115/44
[2019-12-25 12:00] VITALS: BP 121/46
[2019-12-25 16:00] VITALS: BP 132/61
[2019-12-25 20:00] VITALS: BP 113/34
[2019-12-26] VITALS: BP 95/39
[2019-12-26 12:00] VITALS: BP 100/54
[2019-12-26 16:00] VITALS: BP 95/31
[2019-12-26 20:00] VITALS: BP 142/40
[2019-12-27] VITALS: BP 129/47
[2019-12-27 08:00] VITALS: BP 139/45
[2019-12-27 12:00] VITALS: BP 127/60
[2019-12-27 16:00] VITALS: BP 119/59
[2019-12-27] MEDS ORDERED: SEPTDS PO (16:33)
== END 2019-12-27 18:07 | DRG 101 ==
LOC: ED 16:14 → 4E 18:40 → EDHOLD 18:40 → 4E 19:56
PROVIDERS: Emergency Medicine; ADMIT Internal Medicine
DX: G40.409 Other generalized epilepsy and epileptic syndromes, not intractable, without status epilepticus (principal); N39.0 Urinary tract infection, site not specified; F33.1 Major depressive disorder, recurrent, moderate; G30.1 Alzheimer's disease with late onset; F02.80 Dementia in other diseases classified elsewhere, unspecified severity, without behavioral disturbance, psychotic disturbance, mood disturbance, and anxiety; B96.20 Unspecified Escherichia coli [E. coli] as the cause of diseases classified elsewhere; R62.7 Adult failure to thrive; E78.2 Mixed hyperlipidemia; E55.9 Vitamin D deficiency, unspecified; E03.9 Hypothyroidism, unspecified; Z66 Do not resuscitate; Z51.5 Encounter for palliative care; D52.9 Folate deficiency anemia, unspecified; Z88.1 Allergy status to other antibiotic agents; Z88.0 Allergy status to penicillin; Z91.013 Allergy to seafood; Z82.49 Family history of ischemic heart disease and other diseases of the circulatory system; Z82.3 Family history of stroke; Z20.828 Contact with and (suspected) exposure to other viral communicable diseases

== ENCOUNTER 2020-04-21 08:13 | Emergency (ER) | payer MEDICARE, BC ==
[~2020-04-21] VITALS: Wt 127.0 kg
[~2020-04-21 08:13] MED LIST changes: +ATIVAN1 MG R; +COMBIVENT RESPIM4 GM INH; +CRANBERRY200 MG PO
[2020-04-21 09:27] LABS: BASO % 0.3 % (0.0-1.0); EOS % 0.3 % (1.0-4.0); HEMATOCRIT 35.8 % (37.0-47.0); LYMPH # 0.5 10*3/uL (1.3-4.4); LYMPH % 13.9 % (27.0-41.0); MONO # 0.3 10*3/uL (0.1-1.0); MONO % 8.7 % (3.0-9.0); NEUT # 2.6 10*3/uL (2.3-7.9); NEUT % 76.5 % (47.0-73.0); PLATELET COUNT AUTOMATED 83 10*3/uL (130-400); RED BLOOD COUNT 3.58 10*6/uL (4.10-5.10); RED CELL DISTRI WIDTH 13.6 % (0-14.5); WHITE BLOOD COUNT 3.5 10*3/uL (4.8-10.8)
[2020-04-21 09:36] LABS: ACT PARTIAL THROMBO TIME 22.5 SECONDS (20.0-32.1); INTERNATIONAL NORM RATIO 1.2 (2.0-3.5)
[2020-04-21 09:43] LABS: ALBUMIN 3.1 gm/dl (3.1-4.5); CREATININE 1.35 mg/dL (0.55-1.02)
[2020-04-21 09:59] LABS: TROPONIN I 0.015 ng/ml (<0.045)
[2020-04-21 12:22] LABS: BILIRUBIN Negative (Negative); BLOOD Trace-Intact (Negative); CLARITY Cloudy (Clear); COLOR Yellow (Yellow); GLUCOSE Negative (Negative); KETONE Negative (Negative); LEUKO ESTERASE 1+ (Negative); NITRITE Positive (Negative); UROBILINOGEN 0.2 E.U./dl (0.0-1.0)
[2020-04-21 12:38] LABS: BACTERIA 3+; EPITHELIAL CELLS 21-30; WBC 21-30 wbc/hpf (0-5)
[2020-04-21 16:58] VITALS: BP 149/50
== END 2020-04-21 16:59 | disposition home or self-care (01) ==
LOC: ED 08:13
PROVIDERS: Emergency Medicine
DX: U07.1 COVID-19 (principal); R25.1 Tremor, unspecified; R65.20 Severe sepsis without septic shock; N39.0 Urinary tract infection, site not specified; I48.91 Unspecified atrial fibrillation; M19.90 Unspecified osteoarthritis, unspecified site; I11.0 Hypertensive heart disease with heart failure; I50.9 Heart failure, unspecified; E78.5 Hyperlipidemia, unspecified; J44.9 Chronic obstructive pulmonary disease, unspecified; Z88.0 Allergy status to penicillin; Z88.8 Allergy status to other drugs, medicaments and biological substances; Z91.013 Allergy to seafood; Z79.899 Other long term (current) drug therapy